=== PATIENT | female | born 1960 | race Caucasian/White ===

== ENCOUNTER 2022-08-07 07:53 | Inpatient (IN) | payer OTHER, SELFPAY ==
[2022-08-07] VITALS (25 sets, daily range): BP systolic 104–132; BP diastolic 75–86; PULSE 103–125; RESP 16–35; TEMP 37.1–37.9; O2SAT 95–100
--- NOTE | 2022-08-07 | ECHOL_ITS ---
Patient Info Name: Lakeisha Ruiz Age: 62 years : 1960 Gender: Female Ht: 66 in Wt: 180 lbs BSA: 1.97 m2 HR: 109 bpm Technical Quality: Fair Exam Date: 08/07/2022 12:12 PM Exam Location: [facility] Patient Status: Outpatient Admit Date: 08/07/2022 Staff Ordering Physician: Roro Lozano MD ([email or web address]/kim) Adjunct English Instructor: WATSON Attending Provider: Brian Ruiz MD Referring Physician: Blake FRAGA; Exam Type: CA echo limited Study Info Limited two-dimensional transthoracic echocardiogram is performed. Summary 1. This was a limited study done during pericardiocentesis. 2. Large pericardial effusion present. Agitated bubble study shows bubbles in the pericardial space. No bubbles seen in the RV. Linear artifact from pericardial drain catheter seen in the pericardial space. Right Ventricle fazal. Report Signatures
--- NOTE | 2022-08-07 | ECHO_ITS ---
Patient Info Name: Lakeisha Ruiz Age: 62 years : 1960 Gender: Female Ht: 66 in Wt: 180 lbs BSA: 1.97 m2 HR: 113 bpm BP: 112 / 83 mmHg Heart Rhythm: Sinus Rhythm, Tachycardia Technical Quality: Fair Exam Date: 08/07/2022 11:26 AM Exam Location: [facility] Patient Status: Outpatient Admit Date: 08/07/2022 Staff Ordering Physician: Shadi Campos MD Foaming Machine Operator: Kimberly Jean RDCS Attending Provider: Brian Ruiz MD Exam Type: CA echo doppler color flow Study Info Indications - PERICARDIAL EFFUSION Complete two-dimensional, color flow and Doppler transthoracic echocardiogram is performed. Summary 1. Complete two-dimensional, color flow and Doppler transthoracic echocardiogram is performed. 2. Left ventricular chamber dimension is normal. 3. Left ventricular systolic function is hyperdynamic, estimated at >70%. 4. There is mildly increased left ventricular wall thickness. 5. The left ventricular diastolic function is grade I diastolic dysfunction. 6. Right ventricular systolic function is normal. 7. Right atrial systolic collapse noted. 8. There is mild tricuspid valve regurgitation. 9. Dilated inferior vena cava with <50% collapse upon inspiration consistent with elevated right atrial pressure, 15 mmHg. 10. Left pleural effusion present. 11. There is large circumferential pericardial effusion. No clear echocardiographic evidence for tamponade. Recommend clinical correlation. Left Ventricle Left ventricular chamber dimension is normal. Left ventricular systolic function is hyperdynamic, estimated at >70%. There is mildly increased left ventricular wall thickness. The left ventricular diastolic function is grade I diastolic dysfunction. Right Ventricle Right ventricular chamber dimension is normal. Right ventricular systolic function is normal. Left Atria Left atrial chamber dimension is normal. Right Atria Right atrial systolic collapse noted. Right atrial chamber dimension is normal. Aortic Valve The aortic valve is trileaflet. There is mild aortic valve sclerosis. There is no aortic valve stenosis. Pulmonic Valve The pulmonic valve is not well visualized. Mitral Valve There is trace mitral valve regurgitation. The mitral valve annulus is moderately calcified. Tricuspid Valve There is mild tricuspid valve regurgitation. Pericardium/Pleural Left pleural effusion present. The pericardium appears normal. There is large circumferential pericardial effusion. No clear echocardiographic evidence for tamponade. Recommend clinical correlation. Inferior Vena Cava Dilated inferior vena cava with <50% collapse upon inspiration consistent with elevated right atrial pressure, 15 mmHg. Aorta The aortic root size at the sinus of Valsalva is normal. Left Ventricular Outflow Tract Name Value Normal LVOT 2D LVOT Diameter 1.9 cm LVOT Doppler LVOT Peak Gradient 4 mmHg LVOT Mean Gradient 2 mmHg LVOT VTI 14 cm LVOT VTI/AV VTI Ratio 0.9 LVOT Stro
--- NOTE | ~2022-08-07 | XR_ITS ---
Portable chest x-ray Comparison: 08/10/2022 Clinical History: Pleural effusion, pericardial catheter Findings: Pericardial catheter is essentially unchanged. Small bilateral pleural effusions are prese nt, left greater than right. There is probable mild bibasilar pulmonary edema/atelectasis. Cardiomed iastinal silhouette is stable. Bones and soft tissues are unremarkable. Impression: Small bilateral pleural effusions, left greater than right, with mild bibasilar pulmonary edema/atele ctasis. Stable pericardial catheter. Reviewed, dictated and finalized at location M. PMENT MAINTENANCE ENGINEER Impression: Small bilateral pleural effusions, left greater than right, with mild bibasilar pulmonary edema/atelectasis. Stable pericardial catheter.
--- NOTE | ~2022-08-07 | XR_ITS ---
XR chest 1V portable DATE: 08/09/2022 09:00 INDICATION: Pericardial effusion. Asymmetric drainage catheter TECHNIQUE: Portable upright AP chest on August 09, 2022 at 0857 hours COMPARISON: August 07, 2022 CT pulmonary scan FINDINGS: Catheter overlies the left and lower cardiac margin. There is enlargement of the cardiac si lhouette; prominent pericardial effusion was demonstrated on August 07, 2022 CTA chest examination. There is left upper lobe infiltrate. There is left lower lobe atelectasis and/or consolidation. Mild right lower lung infiltrate or atelectasis. Mild bilateral pleural effusions. Osteopenia. IMPRESSION: Catheter overlying heart Bilateral infiltrate and/atelectasis, much more prominent on the left Bilateral pleural effusions Reviewed, dictated and finalized at location A. ICAL NUTRITION MANAGER
--- NOTE | ~2022-08-07 | CT_ITS ---
EXAMINATION: CT abdomen pelvis w con DATE: 08/08/2022 21:23 INDICATION: Iron deficiency anemia and lymphadenopathy TECHNIQUE: Computed tomography (CT) of the abdomen and pelvis was performed with 100 mL Omnipaque-350 intravenous contrast. Automated exposure control and iterative reconstruction technique were employe d. The dose-length product was 493.42 mGy-cm. COMPARISON: Chest CT dated 08/17/2022 FINDINGS: The portions of the previously small right and moderate-sized left pleural effusions currently seen i n the lower lung zones appear unchanged. No interval change in collapse of the visualized basilar por tions of the left lower lobe and lingula and of mild compressive atelectasis in the right lower lobe. Interval placement of a drainage catheter within it decreased but still relatively large pericardial effusion. The heart size is normal and increased since the prior study. There is no leftward bowing of the ventricular septum to suggest tamponade not. There is enhancement without evident nodularity o f the pericardium. 11 mm cyst in the left hepatic lobe. There is heterogeneous enhancement of the liver with net negativ e appearance which can be seen with hepatic venous congestion. Gallbladder, spleen, pancreas, bilater al adrenal glands and kidneys are normal. Bowels including the appendix are normal. Small fat-contain ing umbilical hernia. Bladder, anteverted uterus and bilateral adnexa are unremarkable. Minimal likel y physiologic free fluid in the cul-de-sac. No pathologically enlarged abdominal or pelvic lymphadeno samm. Mild thoracic and lumbar spondylosis. Schmorl's nodes along the inferior endplates of L3 and L 4. IMPRESSION: 1. Slight decreased size of a still relatively large pericardial effusion and increased size of the n ormal sized heart post pericardial drainage catheter placement. There is however not make appears to the hepatic enhancement consistent with hepatic venous congestion and likely residual elevated right heart pressures resulting from the pericardial effusion. 2. No change in the visualized portions of the previously small right and moderate-sized left pleural effusions with associated atelectasis. 3. No pathologically enlarged lymphadenopathy in the abdomen or pelvis. Reviewed, dictated and finalized at location A. VINYL TOP INSTALLER IMPRESSION: 1. Slight decreased size of a still relatively large pericardial effusion and i ncreased size of the normal sized heart post pericardial drainage catheter plac ement. There is however not make appears to the hepatic enhancement consistent with hepatic venous congestion and likely residual elevated right heart pressur es resulting from the pericardial effusion. 2. No change in the visualized portions of the previously small right and moder ate-sized left pleural effusions with associated atelectasis. 3. No pathologically enlarged lymphadenopathy in the abdomen or pelvis.
--- NOTE | ~2022-08-07 | US_ITS ---
US thoracentesis DATE: 08/09/2022 15:04 INDICATION: Left pleural effusion TECHNIQUE: The purpose of the procedure, technique and potential complications including pneumothorax were discussed with the patient. The patient verbalized understanding and gave consent. The patient's lower left back was prepared with sterile Betadine solution. Sterile drape was applied. 1% lidocaine local anesthetic was administered to the skin and underlying subcutaneous tissues in th e lower posterior left intercostal space identified by ultrasound for optimal access to the left pleu ral effusion. A single stick needle/catheter was introduced into the pleural space. Fluid was identified at the hub of the needle. The catheter was advanced and the needle withdrawn. 400 CC and MLO pleural fluid was drained uneventfully. IMPRESSION: Ultrasound-guided percutaneous thoracentesis yielding 400 CC yellowish pleural fluid Reviewed, dictated and finalized at Location A. Reviewed, dictated and finalized at location A. SPERSON SHOES IMPRESSION: Ultrasound-guided percutaneous thoracentesis yielding 400 CC yellow kena pleural fluid
--- NOTE | ~2022-08-07 | US_ITS ---
EXAMINATION: US abdomen limited DATE: 08/07/2022 20:43 INDICATION: Elevated liver function tests TECHNIQUE: Multiple grayscale and Doppler ultrasound images of the abdomen were obtained. COMPARISON: None FINDINGS: The pancreatic head and body are normal in appearance. The pancreatic tail is not visualized. Visual ized proximal to mid inferior vena cava is normal. Liver has normal echogenicity and contour, with a smooth surface. No liver lesion identified. No intrahepatic biliary duct dilation suspected. Portal v enous flow was seen in the hepatopetal, normal direction and has normal Doppler waveform. The gallbla dder is normal in appearance. There is no cholelithiasis. The common bile duct measures 4 mm, which is normal. Sonographic Her sign was reported as negative by the cutter v groove. IMPRESSION: 1. Normal right upper quadrant ultrasound. Reviewed, dictated and finalized at location A. ICAL INVESTIGATOR
--- NOTE | ~2022-08-07 | XR_ITS ---
XR chest 1V portable DATE: 08/10/2022 06:10 INDICATION: Pericardial effusion; drain repositioning TECHNIQUE: Portable upright AP view on August 10, 2022 at 0525 hours COMPARISON: August 09, 2022 portable AP chest at 0857 hours and 1507 hours FINDINGS: Pericardial drainage catheter is again noted. Enlargement of the cardiac silhouette in the colon known pericardial effusion. Mild bilateral pleural effusions. There is infiltrate or atelectasis involving primarily the lower anatoly ng zones, left greater than right. No pneumothorax. IMPRESSION: No significant change since August 09, 2022 at 1507 hours Reviewed, dictated and finalized at location A. OLOGY AIDE
--- NOTE | ~2022-08-07 | XR_ITS ---
EXAMINATION: XR chest 1V portable DATE: 08/07/2022 08:32 INDICATION: Dyspnea. TECHNIQUE: A single frontal view of the chest was obtained on 2 radiographs. COMPARISON: Chest single view 06/11/2022 FINDINGS: There are small right and moderate-sized left pleural effusions. There are airspace opaciti es at the lung bases. No pneumothorax. Cardiomegaly is noted. IMPRESSION: 1. Small right and moderate-sized left pleural effusions with interval improvement on the right and w orsening on the left. 2. Airspace opacities at the lung bases, consistent with atelectasis versus pneumonia. 3. Cardiomegaly. Reviewed, dictated and finalized at location A. TER ASSISTANT IMPRESSION: 1. Small right and moderate-sized left pleural effusions with interval improvem ent on the right and worsening on the left. 2. Airspace opacities at the lung bases, consistent with atelectasis versus pne umonia. 3. Cardiomegaly.
--- NOTE | ~2022-08-07 | XR_ITS ---
EXAMINATION: XR chest 1V portable Exam Date/Time: 08/09/2022 15:00 SUPERINTENDENT PRESSURE HISTORY: post thoracentesis Comparison: CTPA and x-ray chest 08/07/2022. RESULT: Lines, tubes, and devices: A drainage catheter projects over the left mid/lower hemithorax, which lilly s been retracted slightly. Lungs and pleura: No pneumothorax. Decreased size of the left pleural effusion. Persistent diffuse r eticular and hazy groundglass opacities. Decreased left basilar atelectasis/consolidation. Persistent mild right and moderate left costophrenic angle blunting. Cardiomediastinal silhouette: Stable. Other: No acute osseous or upper abdominal finding. IMPRESSION: No pneumothorax status post thoracentesis. Reviewed, dictated and finalized at location K. RINTENDENT PRESSURE
--- NOTE | ~2022-08-07 | CT_ITS ---
EXAMINATION: CTA chest PE protocol DATE: 08/07/2022 10:23 INDICATION: Shortness of breath. TECHNIQUE: Computed tomography angiography (CTA) of the chest was performed with 100 mL Omnipaque-350 intravenous contrast timed to evaluate the pulmonary arteries. Coronal maximum intensity projection 3D-reconstructions were created by the technologist. Automated exposure control and iterative reconst ruction technique were employed. The dose-length product was 241.17 mGy-cm. COMPARISON: Chest single view 08/07/2022 FINDINGS: There are small right and moderate-sized left pleural effusions. There is bilateral passive atelectasis with a dependent predominance. There is a 1.8 cm subcutaneous cyst in right posterior th orax, likely a sebaceous cyst. The heart is small. There is a large pericardial effusion. There is no pulmonary embolus. There is a 3.0 x 2.1 cm mass in the anterior mediastinum. There is mild mediastin al lymphadenopathy. 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 There is mild thoracic spondylosis. IMPRESSION: 1. No pulmonary embolus. 2. Large pericardial effusion. The small heart size is suspicious for tamponade. I called this result to Dr. Campos. 3. Small right and moderate-sized left pleural effusions. 4. 3.0 x 2.1 cm mass in the anterior mediastinum. The differential diagnosis includes lymphoma and th ymoma. Reviewed, dictated and finalized at location A. BOAT CAPTAIN IMPRESSION: 1. No pulmonary embolus. 2. Large pericardial effusion. The small heart size is suspicious for tamponade . I called this result to Dr. Campos. 3. Small right and moderate-sized left pleural effusions. 4. 3.0 x 2.1 cm mass in the anterior mediastinum. The differential diagnosis in cludes lymphoma and thymoma.
--- NOTE | 2022-08-07 08:02 | ECG_ITS ---
Measurements Intervals [place] Rate: 123 P: 32 SC: 128 QRS: 2 QRSD: 79 T: 26 QT: 312 QTc: 447 Interpretive Statements SINUS TACHYCARDIA ABNORMAL RHYTHM ECG NO PREVIOUS ECG AVAILABLE FOR COMPARISON Electronically Signed On 08-07-2022 15:39:36 ORDER SCHEDULE CLERK by Roro Lozano M.D.
--- NOTE | 2022-08-07 08:24 | ED.SOB ---
HPI - SOB/Dyspnea General Chief Complaint: Shortness of Breath/Dyspnea Stated Complaint: shortness of breath while standing, colapsed Time Seen by Provider: 08/07/22 08:16 Source: patient and family Limitations: no limitations History of Present Illness HPI Narrative: 62 years old white female got up to go to the bathroom and then felt lightheadedness and collapsed to the floor, unresponsive for less than 5 seconds. Patient denies any trauma or pain. Patient reports history of shortness of breath for a while mainly on standing or walking. Also intermittent dry cough for a while. She denies history of COVID infection. Last time was seen by a physician over 10 years ago. Questionable anxiety and distress. She denies any fever, chills, nausea, vomiting, headache, chest pain, back pain, abdominal pain or urinary symptoms. The reported that patient been losing weight and have poor appetite for the last few months. Also she has been drinking a lot of water lately. Patient does not smoke or drink or uses drugs. Last chest x-ray on June 11, 2022 showed small pleural effusions, bibasilar airspace opacities, likely passive atelectasis. Please see AVS kidney stone once again give me when he had a stone in the upper kidney bottom or the top and secondly because we can give him we do not give him Toradol for the bottom given Toradol the reason because of the thickening to do lithotripsy stone at the end he given Toradol in the urology TLIF Related Data Home Medications Medication Instructions Recorded Confirmed metoprolol succinate 100 mg mg PO 08/07/22 08/07/22 tablet,extended release 24 hr Allergies Allergy/AdvReac Type Severity Reaction Status Date / Time No Known Allergies Allergy Unverified 11/13/16 16:27 Course Consultations Consultation #1: Dr. Blake Valladares Date: 08/07/22 Time: 10:46 Vital Signs Vital signs: Vital Signs Temperature 37.1 C 08/07/22 07:59 Pulse Rate 123 H 08/07/22 07:59 Respiratory Rate 18 08/07/22 07:59 Blood Pressure 117/86 08/07/22 07:59 Pulse Oximetry 98 08/07/22 07:59 Oxygen Delivery Room Air 08/07/22 07:59 Temperature 37.1 C 08/07/22 07:59 Pulse Rate 123 H 08/07/22 08:05 Respiratory Rate 18 08/07/22 07:59 Blood Pressure 117/86 08/07/22 07:59 Pulse Oximetry 98 08/07/22 08:05 Oxygen Delivery Room Air 08/07/22 08:05 MDM - SOB/Dyspnea MDM Narrative Medical decision making narrative: Patient is 62 years old white female came with shortness of breath for the last few months on exertion, developed lightheadedness and collapse to the floor unresponsive for few seconds prior to arrival today. Physical examination showed pale skin trace edema lower extremity bilaterally, tachyarrhythmia, diminution of air entry bilaterally at the lower bases with rales. On arrival to the ED patient is asymptomatic as long as laying down in bed. Differential diagnosis as below. Labs, chest x-ray, ABG on room air ordered. Blood work-up showed hemoglobin of 9.0, no old records for comparison, patient denies any black stool or any history of GI bleed, D-dimer 11.39, pulmonary embolism is a possibility, Lovenox 80 mg subcu ordered and given, CTA rule out PE ordered. And showed no PE, large pericardial effusion, suspicious for tamponade. Also MS in the anterior mediastinum which could be lymphoma or thymoma is a possibility. Cardiac echocardiogram ordered. Hospitalist, Dr. Lozano the director experimental medicine on-call was notified. Patient will be admitted to IMU, The patient and her family were notified about the result. Currently patient is hemodynamically stable S review Differential Diagnosis Differential diagnosis: Likely congestive heart failure, community acquired pneumonia and pulmonary embolism Lab Data 08/07/22 08:15 08/07/22 08:15 Labs: Lab Results 08/07/22 08/07/22 Range/Units 08:15 08:15 WBC 7.9 (4.5-10.0) K/mm3 RBC 3.44 L (4.2
[2022-08-07 08:27] LABS: Basophils Percent Auto 0.1 % (0.2-1.2); Eosinophils Percent Auto 0.1 % (0-4.4); Hematocrit 28.6 % (37.0-47.0); Immature Granulocyte Absolute 0.06 K/mm3 (0.00-0.031); Immature Granulocyte Percent A 0.8 % (0-0.5); Lymphocytes Absolute Auto 1.04 K/mm3 (0.9-3.2); Lymphocytes Percent Auto 13.2 % (18.3-44.2); Mean Corpuscular HGB Conc 31.5 g/dl (32-36); Mean Corpuscular Hemoglobin 26.2 pg (26-34); Mean Corpuscular Volume 83.1 fl (80-100); Mean Platelet Volume 9.6 fl (7.4-10.4); Monocytes Absolute Auto 0.6 K/mm3 (0.1-0.6); Monocytes Percent Auto 7.4 % (2.6-8.5); Neutrophils Absolute Auto 6.2 K/mm3 (1.3-6.7); Neutrophils Percent Auto 78.4 % (45.5-73.1); Platelet Count Result 418 k/mm3 (150-375); Red Blood Count 3.44 M/mm3 (4.2-5.4); Red Cell Distribution Width 15.2 % (11.5-14.5); White Blood Count 7.9 K/mm3 (4.5-10.0)
[2022-08-07 08:31] LABS: Alanine Aminotransferase 67 U/L (6-35); Albumin Level 3.8 g/dL (3.5-5.1); Alkaline Phosphatase 74 U/L (38-126); Anion Gap 12 mmol/L (8-16); Aspartate Amino Transferase 263 U/L (14-36); Bilirubin,Total 1.2 mg/dL (0.2-1.3); Blood Urea Nitrogen 21 mg/dL (7-17); Calcium 8.2 mg/dL (8.4-10.2); Carbon Dioxide 21 mmol/L (22-30); Chloride 98 mmol/L (98-107); Estimated CRCL calculation 78 ml/min; Estimated Glomerular Filt Rate > 60; Glucose 181 mg/dL (65-110); Potassium 4.1 mmol/L (3.4-5.0); Sodium 131 mmol/L (137-145)
[2022-08-07 08:45] LABS: Alveolar/Arterial O2 Gradient 42.8 mmHg; Base Excess ABG -1.8 mEq/l (+/-2.0); Fractional Inspired Oxygen 21 %; HCO3 ABG 20.6 mEq/l (22.0-26.0); Oxygen Content ABG 12.4 %vol (16.0-22.0); Oxygen Saturation ABG 96.3 % (95.0-100.0); Oxyhemoglobin 93.2 % THb (90.0-100.0); PCO2 ABG 27.1 mmHg (35.0-45.0); PO2 ABG 74.5 mmHg (80.0-100.0); PO2 FiO2 Ratio Arterial Blood 3.55 %; Total Hemoglobin 9.4 g/dL (12.0-18.0); pH ABG 7.499 (7.350-7.450)
[2022-08-07 08:46] LABS: Modified Allen's Test Pass; Site Drawn RIGHT RADIAL
[2022-08-07 08:47] LABS: Device ROOM AIR
[2022-08-07 09:25] LABS: Magnesium 2.1 mg/dL (1.6-2.3)
[2022-08-07 09:30] LABS: INR 1.4; Partial Thromboplastin Time 29.6 SECONDS (22.3-36.8); Prothrombin Time 16.3 Seconds (11.1-14.7)
[2022-08-07 09:34] LABS: Appearance Urine Slightly Cloudy (Clear); Bilirubin Urine 2+ (Negative); Blood Urine Trace-lysed (Negative); Color Urine Dark Yellow (Yellow); Glucose Urine UA Trace mg/dL (Negative); Ketones Urine 1+ mg/dL (Negative); Leukocyte Esterase Ur Negative LEU/UL (Negative); Nitrate Urine Negative (Negative); Protein Urine 2+ mg/dL (Negative); Specific Grav Ur >= 1.030 (1.001-1.035); pH Urine 5.5 (5.0-9.0)
[2022-08-07 09:37] LABS: NT Pro B Type Natriuretic Pept 1460 pg/mL (19.9-100); Troponin I < 0.012 ng/mL (0.000-0.034)
[2022-08-07 09:44] LABS: D Dimer 11.39 ug/mL (<0.48)
[2022-08-07 09:49] LABS: Influenza A QL RT-PCR Negative (Negative); Influenza B QL RT-PCR Negative (Negative); RSV RNA, RT-PCR Negative (Negative); SARS-CoV-2 RNA PCR Negative
[2022-08-07] MEDS: ENOXAPARIN 80 MG/0.8 ML SYRINGE SUB-Q (10:01)
[2022-08-07 11:00] LABS: Hyaline Casts Urine 50+ /lpf; Mucus Urine Moderate /lpf; Squamous Epithelial Cell Urine Many /hpf (Few)
[2022-08-07 11:12] LABS: Add Urine Microscopic? YES
--- NOTE | 2022-08-07 11:59 | PM.CNCAR ---
Assessment and Plan Assessment and plan (1) Pericardial effusion: Code(s): I31.39 - Other pericardial effusion (noninflammatory) Status: Acute Plan Will proceed with pericardiocentesis. Unclear reason for pericardial effusion. Will send off pericardial fluid for cultures, gram stain, cytology. Check TSH level. Recommend Oncology consultation for anterior mediastinal mass. History of Present Illness History of Present Illness Consult date/time: 08/07/22 11:59 Requesting physician: Shadi Campos MD Consult reason: Other (Pericardial effusion) Reason For Visit: pericardial effusion dyspnea,sinus tachycardia,chf Narrative: We are consulted for pericardial effusion. This is a 62-year-old female who presented to the ER after a syncopal episode today. Patient states she has been having exertional shortness of breath for the past few days. This morning, when walking she began to feel lightheaded and dizzy and then passed out for a few seconds. Patient does report having diarrhea and nausea/vomiting last weekend. No fevers. In the ER, patient noted to be tachycardic and tachypneic. Hemodynamically stable. Elevated D-dimer, therefore, dose of therapeutic Lovenox was given for concern for PE. CTA showed no PE, but did show large pericardial effusion, the small heart size is suspicious for tamponade. There are small right and moderate-sized left pleural effusions. There is also a 3.0mm x 2.1cm mass in the anterior mediastinum. The differential diagnosis includes lymphoma and thymoma. STAT bedside echo does confirm large circumferential pericardial effusion. Given patient's tachycardia, tachypnea, syncope in the setting of large pericardial effusion, recommended pericardiocentesis. Discussed the procedure with the patient, including risks vs benefits, and patient agreeable. Review of Systems Review of Systems: 12-point ROS obtained. Negative, unless stated in HPI. Meds Home Medications and Allergies Home Medications Medication Instructions Recorded Confirmed Type metoprolol succinate 100 mg mg PO 08/07/22 08/07/22 History tablet,extended release 24 hr Allergies Allergy/AdvReac Type Severity Reaction Status Date / Time No Known Allergies Allergy Unverified 11/13/16 16:27 Vital Signs Vital Signs - 24 hr 08/07/22 07:59 08/07/22 08:05 08/07/22 08:05 Temperature 37.1 C Pulse Rate 123 H 123 H Respiratory Rate 18 Blood Pressure 117/86 Pulse Oximetry 98 98 Oxygen Delivery Room Air Room Air 08/07/22 09:00 08/07/22 09:02 08/07/22 08:03 Temperature Pulse Rate 117 H 120 H 125 H Respiratory Rate 35 H Blood Pressure 121/78 110/81 Pulse Oximetry 98 Oxygen Delivery 08/07/22 08:21 08/07/22 08:33 08/07/22 09:02 Temperature Pulse Rate 119 H 121 H 119 H Respiratory Rate 24 H 27 H 24 H Blood Pressure Pulse Oximetry 98 98 97 Oxygen Delivery 08/07/22 09:26 08/07/22 09:30 08/07/22 09:31 Temperature Pulse Rate 114 H 113 H 113 H Respiratory Rate 29 H 29 H 34 H Blood Pressure 112/83 Pulse Oximetry 97 97 97 Oxygen Delivery 08/07/22 09:45 08/07/22 10:30 08/07/22 10:41 Temperature Pulse Rate 112 H 110 H 115 H Respiratory Rate 34 H 30 H 33 H Blood Pressure 112/85 Pulse Oximetry 95 100 99 Oxygen Delivery 08/07/22 10:45 08/07/22 10:52 08/07/22 11:16 Temperature Pulse Rate 111 H 111 H 111 H Respiratory Rate 27 H 31 H 30 H Blood Pressure 104/82 Pulse Oximetry 97 97 96 Oxygen Delivery 08/07/22 11:38 08/07/22 11:45 Temperature Pulse Rate 111 H 112 H Respiratory Rate 27 H 31 H Blood Pressure Pulse Oximetry 97 99 Oxygen Delivery Exam Const: General: no acute distress HENMT: Mouth: Yes moist mucous membranes Eyes: General: appearance normal, both eyes and all related structures Sclera: sclerae normal Neck: Neck: supple Resp: Auscultation: diminished lung sounds Other: Tachypneic Cardio: Rate: tachycar
--- NOTE | 2022-08-07 12:07 | WPDMODSED ---
Moderate Sedation Note-Pt Data Patient Data Diagnosis: Pericardial effusion Present Complaint: Pericardial effusion Procedure to be performed/Plan: Pericardiocentesis Allergies Allergy/AdvReac Type Severity Reaction Status Date / Time No Known Allergies Allergy Unverified 11/13/16 16:27 Home Medications Medication Instructions Recorded Confirmed Type metoprolol succinate 100 mg mg PO 08/07/22 08/07/22 History tablet,extended release 24 hr Current Medications: Active Medications Acetaminophen (Ofirmev 1,000 Mg Ivpb) 1,000 mg in 100 mls @ 400 mls/hr IVPB Q6H PRN PRN Reason: Mild Pain (1-3) or Fever Stop: 08/08/22 10:46 Perflutren Lipid Microsphere (Perflutren Lipid Microspheres 1.5 Ml Vial Diluted To 10 Ml Total Volume) 0 ml IV PUSH ONCE PRN; Protocol PRN Reason: adequate visualization Stop: 08/09/22 10:44 Sedation/Anesthesia: No previous sedation/anesthesia problems (including family history). Mod Sed Physical Exam Physical Exam Pre Procedural Exam: Normal: Appearance, Neuro Exam, Abdomen, Extremities and Skin and Variation: Lungs (Decreased breath sounds), Heart Rate (Sinus tachycardia) and Heart Rhythm (Sinus tachycardia) Hours since solid foods: 8 Hours since liquid intake: 5 Mallampati Classification: class II Internal Medicine - PN: Obj Da Vital Signs Vital Signs: Vital Signs - 24 hr 08/07/22 07:59 08/07/22 08:05 08/07/22 08:05 Temperature 37.1 C Pulse Rate 123 H 123 H Respiratory Rate 18 Blood Pressure 117/86 Pulse Oximetry 98 98 Oxygen Delivery Room Air Room Air 08/07/22 09:00 08/07/22 09:02 08/07/22 08:03 Temperature Pulse Rate 117 H 120 H 125 H Respiratory Rate 35 H Blood Pressure 121/78 110/81 Pulse Oximetry 98 Oxygen Delivery 08/07/22 08:21 08/07/22 08:33 08/07/22 09:02 Temperature Pulse Rate 119 H 121 H 119 H Respiratory Rate 24 H 27 H 24 H Blood Pressure Pulse Oximetry 98 98 97 Oxygen Delivery 08/07/22 09:26 08/07/22 09:30 08/07/22 09:31 Temperature Pulse Rate 114 H 113 H 113 H Respiratory Rate 29 H 29 H 34 H Blood Pressure 112/83 Pulse Oximetry 97 97 97 Oxygen Delivery 08/07/22 09:45 08/07/22 10:30 08/07/22 10:41 Temperature Pulse Rate 112 H 110 H 115 H Respiratory Rate 34 H 30 H 33 H Blood Pressure 112/85 Pulse Oximetry 95 100 99 Oxygen Delivery 08/07/22 10:45 08/07/22 10:52 08/07/22 11:16 Temperature Pulse Rate 111 H 111 H 111 H Respiratory Rate 27 H 31 H 30 H Blood Pressure 104/82 Pulse Oximetry 97 97 96 Oxygen Delivery 08/07/22 11:38 08/07/22 11:45 08/07/22 12:04 Temperature Pulse Rate 111 H 112 H 112 H Respiratory Rate 27 H 31 H 16 Blood Pressure 132/84 Pulse Oximetry 97 99 98 Oxygen Delivery Meds/Results Medications: Active Medications Generic Name Dose Route Start Last Admin Trade Name Freq PRN Reason Stop Dose Admin Acetaminophen 1,000 mg in 100 mls @ 400 mls/hr 08/07/22 10:47 Ofirmev 1,000 Mg Ivpb IVPB 08/08/22 10:46 Q6H PRN Mild Pain (1-3) or Fever Perflutren Lipid Microsphere 0 ml 08/07/22 10:44 Perflutren Lipid Microspheres 1.5 Ml Vial Diluted To 10 Ml Total Volume IV PUSH 08/09/22 10:44 ONCE PRN adequate visualization Protocol Radiology Results: ITS Impressions Chest X-Ray 08/07/22 08:34 IMPRESSION: 1. Small right and moderate-sized left pleural effusions with interval improvement on the right and worsening on the left. 2. Airspace opacities at the lung bases, consistent with atelectasis versus pneumonia. 3. Cardiomegaly. Chest CTA 08/07/22 10:23 IMPRESSION: 1. No pulmonary embolus. 2. Large pericardial effusion. The small heart size is suspicious for tamponade. I called this result to Dr. Campos. 3. Small right and moderate-sized left pleural effusions. 4. 3.0 x 2.1 cm mass in the anterior mediastinum. The differential diagnosis includes lymphoma and thymoma. Labs
--- NOTE | 2022-08-07 13:05 | WPDCARDPROC ---
Cardiac Cath Procedure Note Date of procedure:: 08/07/22 Performing physician:: CATHETERIZATION LABORATORY REPORT Procedure Date: 08/07/2022 [place] Compliance Coordinator: Roro Loznao M.D., [facility]? Referring Physician: Dr. Campos ([facility]) ? Anesthesia: Versed and Fentanyl were ordered and given in my presence at 12:16, procedure ended at 12:55. Supervision of nurse monitored moderate sedation with Versed and Fentanyl was provided for 39 minutes. Total of Versed 1mg and Fentanyl 25mcg were administered by the Vice President Of Engineering RN Lakeisha Cruz. Pre-op Diagnosis: Pericardial effusion Post-op Diagnosis: Successful pericardiocentesis with placement of pericardial drain catheter. 400ccs of pericardial fluid removed. Procedure(s): Pericardiocentesis with placement of pericardial drain catheter Access Site: Subxiphoid Brief History and Clinical Indications: Patient is a 62-year-old female with presented after a syncopal episode. Patient found with large pericardial effusion. Patient normotensive, however, due to tachycardia, tachypnea, large pericardial effusion, and syncope, patient referred for pericardiocentesis. All risks, benefits and alternatives to pericardiocentesis was discussed at length with the patient. Risk of complications including but not limited to bleeding, infection, arrhythmia, stroke, worsening kidney function, blood loss, emergency surgery, and even were discussed with the patient and all questions were answered. The patient understood and wished to proceed. Time out called, patient name, date of , medical record number, allergies, procedure performed, identify [facility] Compliance Coordinator, patient and staff member concurred with accurate data, procedure carried on. Description of Procedure: Informed consent signed and placed in the chart. Patient transferred to laborer golf course room. Prepped and draped in usual sterile fashion. 2% lidocaine injected subcutaneously in subxiphoid area. Micropuncture needle used to access into the pericardial space with direct fluoroscopic guidance along with echocardiographic guidance. Micropuncture wire advanced. Micropuncture cannula advanced. Micropuncture wire removed. Agitated saline bubble study performed through micropuncture cannula, which showed bubbles in the pericardial space. No bubbles seen in the RV. 0.035 J wire advanced into pericardial space. 6F dilator used to dilate the tract. Pigtail catheter was advanced and positioned and sutured in place. Pigtail catheter connected to drain bag. Total of 400ccs of pericardial fluid were drained. Samples sent to the lab for analysis. Procedure terminated without complications. ? Assessment: Successful pericardiocentesis with placement of pericardial drain catheter. 400ccs of pericardial fluid removed. Post Operative Condition: Stable No significant blood loss Disposition: ICU Plan: See consult note for further plan/recommendations. ? Roro Lozano M.D. Interventional Cardiology
--- NOTE | 2022-08-07 13:22 | ADMGEN ---
This patient, Lakeisha Ruiz, was admitted to ICU bed 4 at 1319. Patient/family oriented to hospital policies and general routines including ID bracelet, bed and alarms, visiting hours, pain management, procedures, bathroom and other care routines, personal items, smoking policy, room service/diet, and visiting hours. Information on how to activate the Rapid Response Team has been discussed. Patient/Family are encouraged to report perceived risks to care and to ask questions if they do not understand what they are told or what they should do.
--- NOTE | 2022-08-07 13:55 | WPDCNINT ---
Assessment and Plan Assessment and plan (1) Pericardial effusion: Code(s): I31.39 - Other pericardial effusion (noninflammatory) Status: Acute Assessment and Plan: patient presented with exertional dyspnea and syncope - CTA chest showed large pleural effusion, no PE - cardiology was consulted - status post pericardiocentesis with removal of 400 mL of marilou colored fluid which has been sent for cytology, cell count, Gram stain and culture - cardiology following the patient closely -. repeat limited echocardiogram in a.m. on 08/08/2022 (2) Mediastinal mass: Code(s): J98.59 - Other diseases of mediastinum, not elsewhere classified Status: Acute Assessment and Plan: 08/07/2022 chest CTA: No pulmonary embolus.. Large pericardial effusion. The small heart size is suspicious for tamponade. I called this result to Dr. Campos.. Small right and moderate-sized left pleural effusions.. 3.0 x 2.1 cm mass in the anterior mediastinum. The differential diagnosis includes lymphoma and thymoma. - pericardiocentesis fluid has been sent for cytology, cell count, Gram stain and culture - will have hematology/oncology evaluated the patient (3) Anemia: Code(s): D64.9 - Anemia, unspecified Status: Acute Assessment and Plan: patient's hemoglobin is 9.0 - will check stool for occult blood - check vitamin B12 and folic acid - check iron panel (4) Elevated LFTs: Code(s): R79.89 - Other specified abnormal findings of blood chemistry Status: Acute Assessment and Plan: elevated LFTs, will obtain hepatitis panel, right upper quadrant ultrasound - given pericardial effusion, mediastinal mass patient will benefit from a CT scan of the abdomen and pelvis, will discuss with Oncology Plan DVT prophylaxis: SCDs, patient has a pericardial drain Stress ulcer prophylaxis: not applicable Nutrition: heart healthy diet Code Status: full code Critical Care Time Spent: 47 minutes Discussed with patient, her Dr. Ruiz, and her children and updated them with patient's condition and plan of care. I answered all questions. The aware that Hematology/ oncology's on re-evaluating the patient Discussed with Dr. Lozano from Cardiology Due to a high probability of clinically significant, life threatening deterioration, the patient required my highest level of preparedness to intervene emergently and I personally spent this critical care time directly and personally managing the patient. This critical care time included obtaining a history; examining the patient; pulse oximetry; ordering and review of studies; arranging urgent treatment with development of a management plan; evaluation of patient's response to treatment; frequent reassessment; and discussions with other providers. It was exclusive of separately billable procedures and treating other patients and teaching time. Please see Assessment and Plan section and the rest of the note for further information on patient assessment and treatment This dictation may have been done utilizing a voice recognition system. Attempts have been made to correct errors. However, there may be uncorrected grammatical, spelling, and recognitions errors present. Colorectal Surgeon Consult Note Consult date: 08/07/22 Reason for consult: syncope, , dyspnea, tachycardia,large pericardial effusion HPI: Lakeisha Ruiz is a 62 year old female past medical history of hypertension on metoprolol, presented the ER on 08/07/2022 with complains of a syncopal episode on the day of admission. Patient also complain of some exertional shortness of breath for the last few days. Has been reported weight loss and poor appetite over the last few months. according the patient she was walking to the washroom and fell lightheaded and dizzy and then had a syncopal episodes for a few seconds. he complain of some diarrhea, nausea / vomiting last weekend, no fevers. In the ER patient wa
[2022-08-07 14:14] LABS: Troponin I 0.012 ng/mL (0.000-0.034)
[2022-08-07] MEDS: SODIUM CHLORIDE 0.9% IV 1,000 ML 75 ML IV CONT (14:55)
[2022-08-07 14:58] LABS: Hepatitis B Surface Antigen Negative (Negative)
[2022-08-07 15:03] LABS: HAV RESULT Negative (Negative); Hepatitis B Core IgM Result Negative (Negative)
[2022-08-07 15:15] LABS: Hepatitis C Virus Antibody Negative (Negative)
[2022-08-07 15:39] LABS: Folic Acid 4.8 ng/mL (2.76->20)
[2022-08-07 16:29] LABS: Troponin I 0.028 ng/mL (0.000-0.034)
[2022-08-07 18:33] LABS: Iron 16 ug/dL (37-170)
[2022-08-07 18:47] LABS: Percent Iron Saturation 8 % (20-50)
--- NOTE | 2022-08-07 23:00 | PM.IMHP ---
H&P: HPI History of Present Illness Date/Time: 08/07/22 23:00 Chief Complaint: Syncope. Narrative: This is a very pleasant 62-year-old female presented to the emergency department for evaluation after a syncopal episode. Patient provides the following history. She has had a dry, hacking cough since last summer and she has lost about 20 to 30 lb in that same time frame. She has not felt well since last weekend with generalized malaise, decrease in energy, poor appetite, occasional nausea and vomiting, and intermittent lightheadedness with position changes. This morning after using the restroom she started to feel lightheaded, dizzy, and weak and she collapsed to the floor after leaving the bathroom. She was briefly unresponsive, perhaps 5 seconds or so before coming to. She was tachycardic (sinus rhythm in the 120s), afebrile, and had stable blood pressures on arrival to the ED. Labs were significant for a D-dimer of 11.39, normocytic anemia with a hemoglobin of 9.0, sodium 131, glucose 181, AST 263, ALT 67, troponin less than 0.012, proBNP 1460. Urine was concentrated with 2+ protein, 1+ ketones, trace glucose, and many hyaline casts. CTA of the chest showed no evidence of pulmonary embolism, a 3.0 x 2.1 cm mass in the anterior mediastinum, small right and moderate size left pleural effusions, and a large pericardial effusion with findings suspicious for tamponade. She was taken to the chemical processing laborer and underwent successful pericardiocentesis with placement of pericardial drain catheter. 400 cc of pericardial fluid was removed and initially the fluid was straw-colored however now it appears more bloody. At the time my evaluation she is resting comfortably and has no specific complaints. She has not noticed swelling in the face or extremities and she has not noticed any swollen lymph nodes. She also denies rash, pruritus, and night sweats. Review of Systems Review of Systems: Twelve systems were reviewed and are negative except for as per HPI. [facility] Past Medical History Medical History (Updated 08/09/22 @ 00:37 by Hazel Lopez PA-C) Hypertension Surgical History Surgical History (Updated 08/09/22 @ 00:37 by Hazel Lopez PA-C) History of tonsillectomy Family History Family History Sibling Bladder cancer Father Melanoma Mother Lymphoma Social History Social History (Updated 08/09/22 @ 00:38 by Hazel Lopez PA-C) Social History: Surrogate medical decision maker: Brian Ruiz, spouse. Code status: Full code. Smoking status: Never smoker Alcohol intake: never Substance use: never Lack of Transportation: No Lack of Food: Never True Current Housing: I Have Housing Concerned About Future Housing: No Difficulty Paying Gas/Electric Bills: No Difficulty Paying for Meds: No Currently Unemployed: No Education: Bachelor's Degree Difficulty w/ Childcare or Family Care: No Spiritual care concerns: No Meds Home Medications and Allergies Home Medications Medication Instructions Recorded Confirmed Type loratadine 10 mg tablet (Claritin) 10 mg PO DAILY 08/07/22 08/07/22 History metoprolol succinate 100 mg 100 mg PO DAILY 08/07/22 08/07/22 History tablet,extended release 24 hr Allergies Allergy/AdvReac Type Severity Reaction Status Date / Time No Known Allergies Allergy Unverified 11/13/16 16:27 Vital Signs Vital Signs - 24 hr 08/07/22 07:59 08/07/22 08:05 08/07/22 08:05 Temperature 98.7 F Pulse Rate 123 H 123 H Respiratory Rate 18 Blood Pressure 117/86 Pulse Oximetry 98 98 Oxygen Delivery Room Air Room Air 08/07/22 09:00 08/07/22 09:02 08/07/22 08:03 Temperature Pulse Rate 117 H 120 H 125 H Respiratory Rate 35 H Blood Pressure 121/78 110/81 Pulse Oximetry 98 Oxygen Delivery 08/07/22 08:21 08/07/22 08:33 08/07/22 09:02 Temperature Pulse Rate 119 H 121 H 119 H
[2022-08-08] VITALS (15 sets, daily range): BP systolic 110–142; BP diastolic 82–100; PULSE 86–158; RESP 25–30; TEMP 36.6–37.3; O2SAT 92–97; BMI 29.0
[2022-08-08 04:13] LABS: Basophils Percent Auto 0.3 % (0.2-1.2); Hemoglobin 8.3 g/dL (12.0-15.0); Immature Granulocyte Absolute 0.05 K/mm3 (0.00-0.031); Immature Granulocyte Percent A 0.8 % (0-0.5); Lymphocytes Absolute Auto 1.23 K/mm3 (0.9-3.2); Mean Corpuscular HGB Conc 31.9 g/dl (32-36); Mean Corpuscular Hemoglobin 25.8 pg (26-34); Mean Corpuscular Volume 80.7 fl (80-100); Mean Platelet Volume 9.1 fl (7.4-10.4); Monocytes Absolute Auto 0.5 K/mm3 (0.1-0.6); Monocytes Percent Auto 7.1 % (2.6-8.5); Neutrophils Absolute Auto 4.7 K/mm3 (1.3-6.7); Neutrophils Percent Auto 72.8 % (45.5-73.1); Platelet Count Result 352 k/mm3 (150-375); Red Blood Count 3.22 M/mm3 (4.2-5.4); White Blood Count 6.5 K/mm3 (4.5-10.0)
[2022-08-08 04:24] LABS: Alanine Aminotransferase 79 U/L (6-35); Albumin Level 2.9 g/dL (3.5-5.1); Alkaline Phosphatase 56 U/L (38-126); Anion Gap 5 mmol/L (8-16); Aspartate Amino Transferase 167 U/L (14-36); Bilirubin,Total 0.7 mg/dL (0.2-1.3); Blood Urea Nitrogen 21 mg/dL (7-17); Calcium 7.5 mg/dL (8.4-10.2); Carbon Dioxide 26 mmol/L (22-30); Chloride 103 mmol/L (98-107); Estimated CRCL calculation 90 ml/min; Estimated Glomerular Filt Rate > 60; Glucose 101 mg/dL (65-110); INR 1.4; Partial Thromboplastin Time 29.5 SECONDS (22.3-36.8); Potassium 3.3 mmol/L (3.4-5.0); Prothrombin Time 16.7 Seconds (11.1-14.7); Sodium 134 mmol/L (137-145); Uric Acid 5.2 mg/dL (2.5-7.5)
[2022-08-08 04:26] LABS: Magnesium 2.3 mg/dL (1.6-2.3); Phosphorus 2.4 mg/dL (2.5-4.5)
[2022-08-08 04:47] LABS: Platelet Estimate Adequate (Adequate); Poikilocytosis 1+ (NORMAL); Rouleaux 1+ (NORMAL); Schistocytes None Seen (NORMAL)
[2022-08-08 04:48] LABS: Burr Cells 1+ (NORMAL)
[2022-08-08 05:13] LABS: Hepatitis B Surface Antigen Negative (Negative)
[2022-08-08 05:19] LABS: HAV RESULT Negative (Negative); Hepatitis B Core IgM Result Negative (Negative)
[2022-08-08 05:30] LABS: Hepatitis C Virus Antibody Negative (Negative)
--- NOTE | 2022-08-08 07:00 | ECHOL_ITS ---
Patient Info Name: Lakeisha Ruiz Age: 62 years : 1960 Gender: Female Ht: 66 in Wt: 180 lbs BSA: 1.97 m2 HR: 109 bpm BP: 110 / 86 mmHg Heart Rhythm: Sinus Rhythm Technical Quality: Good Exam Date: 08/08/2022 11:01 AM Exam Location: [facility] Card Pulmonary Patient Status: Inpatient Admit Date: 08/07/2022 Staff Ordering Physician: Roro Lozano MD (awilda/kim) Community Affairs Director: Kimberly Jean RDCS Attending Provider: Ron Maher MD Referring Physician: Blake FRAGA; Exam Type: CA echo limited Study Info Indications - RE-EVALUATE PERICARDIAL EFFUSION Limited two-dimensional transthoracic echocardiogram is performed. Summary 1. Left ventricular chamber dimension is normal. 2. Left ventricular systolic function is normal, estimated at 65-70%. 3. Right ventricular chamber dimension is normal. 4. There is moderate circumferential pericardial effusion. 5. Catheter is seen in the pericardial space. Left Ventricle Left ventricular chamber dimension is normal. Left ventricular systolic function is normal, estimated at 65-70%. Right Ventricle Right ventricular chamber dimension is normal. Left Atria Left atrial chamber dimension is normal. Right Atria Right atrial chamber dimension is normal. Aortic Valve The aortic valve is not well visualized. Pulmonic Valve The pulmonic valve is not well visualized. Mitral Valve The mitral valve has normal leaflets. Tricuspid Valve The tricuspid valve leaflets are normal. Pericardium/Pleural There is moderate circumferential pericardial effusion. Catheter is seen in the pericardial space. Aorta The aortic root size at the sinus of Valsalva is normal. Report Signatures
[2022-08-08] MEDS: POTASSIUM PHOS/SODIUM PHOS 250 MG TABLET PO (07:41)
--- NOTE | 2022-08-08 07:45 | WPDINTPN ---
Progress Note: A&P Assessment and Plan (1) Pericardial effusion: Code(s): I31.39 - Other pericardial effusion (noninflammatory) Status: Acute Assessment and Plan: patient presented with exertional dyspnea and syncope - CTA chest showed large pleural effusion, no PE - cardiology was consulted - status post pericardiocentesis with removal of 400 mL of marilou colored fluid which has been sent for cytology, cell count, Gram stain and culture - cardiology following the patient closely - repeat limited echocardiogram in a.m. on 08/08/2022 - pericardial drain at 310 mL overnight, may need to be flushed will discuss with Cardiology (2) Mediastinal mass: Code(s): J98.59 - Other diseases of mediastinum, not elsewhere classified Status: Acute Assessment and Plan: 08/07/2022 chest CTA: No pulmonary embolus.. Large pericardial effusion. The small heart size is suspicious for tamponade. I called this result to Dr. Campos.. Small right and moderate-sized left pleural effusions.. 3.0 x 2.1 cm mass in the anterior mediastinum. The differential diagnosis includes lymphoma and thymoma. - pericardiocentesis fluid has been sent for cytology, cell count, Gram stain and culture - will have hematology/oncology evaluated the patient (3) Anemia: Code(s): D64.9 - Anemia, unspecified Status: Acute Assessment and Plan: patient's hemoglobin is 9.0 - stool for occult blood has been ordered - vitamin B and folic acid levels are within normal limits - low iron, low transferrin saturation, low TIBC, could be related to anemia of chronic disease, hematology/oncology has been consulted - haptoglobin is pending - check LDH (4) Elevated LFTs: Code(s): R79.89 - Other specified abnormal findings of blood chemistry Status: Acute Assessment and Plan: elevated LFTs, -08/07: hepatitis panel is negative -08/07: RUQ ultrasound: normal right upper quadrant ultrasound - given pericardial effusion, mediastinal mass patient will benefit from a CT scan of the abdomen and pelvis, will discuss with Oncology Plan DVT prophylaxis: SCDs, patient has a pericardial drain Stress ulcer prophylaxis: not applicable Nutrition: heart healthy diet Code Status: full code Critical Care Time Spent: 33 minutes Discussed with patient, her Dr. Ruiz, and her children and updated them with patient's condition and plan of care. I answered all questions. The aware that Hematology/ oncology's on re-evaluating the patient Discussed with Dr. Lozano from Cardiology Due to a high probability of clinically significant, life threatening deterioration, the patient required my highest level of preparedness to intervene emergently and I personally spent this critical care time directly and personally managing the patient. This critical care time included obtaining a history; examining the patient; pulse oximetry; ordering and review of studies; arranging urgent treatment with development of a management plan; evaluation of patient's response to treatment; frequent reassessment; and discussions with other providers. It was exclusive of separately billable procedures and treating other patients and teaching time. Please see Assessment and Plan section and the rest of the note for further information on patient assessment and treatment This dictation may have been done utilizing a voice recognition system. Attempts have been made to correct errors. However, there may be uncorrected grammatical, spelling, and recognitions errors present. Subjective Date/time seen: 08/08/22 07:45 Interval history: Reason for consult: syncope, , dyspnea, tachycardia,large pericardial effusion 08/08/2022: Patient seen and examined in the ICU, is awake, alert, oriented x3, nonfocal. Afebrile, adequate urine output, hemodynamically stable. Patient had 310 mL in the pericardial drain overnight. Bedside RN also noted some clots. Josiah
[2022-08-08 09:21] LABS: Lactate Dehydrogenase 394 U/L (120-246)
--- NOTE | 2022-08-08 15:39 | ECG_ITS ---
Measurements Intervals [place] Rate: 165 P: RI: 0 QRS: -5 QRSD: 83 T: 214 QT: 265 QTc: 439 Interpretive Statements ATRIAL FIBRILLATION WITH RAPID VENTRICULAR RESPONSE COMPARED TO ECG 08/07/2022 08:04:39 ATRIAL FIBRILLATION NOW PRESENT ABERRANT CONDUCTION OF SUPRAVENTRICULAR BEAT(S) NOW PRESENT Electronically Signed On 08-09-2022 8:19:04 YOUTH LEADER by Lesly Rosenberg M.D.
[2022-08-08] MEDS: METOPROLOL TARTRATE INJ 5 MG/5 ML VIAL IV PUSH (15:55)
[2022-08-08] MEDS: SOTALOL HCL 80 MG TABLET PO (16:29)
--- NOTE | 2022-08-08 16:42 | PC.NURSE ---
Rhythm change noted at 1535, stat ekg obtained. Patient found to be in afib rvr. Orders obtained from Dr. Frye for Metoprolol 5 mg ivpush now, Sotalol 80 mg po now. Patient noted to return to normal sinus rhythm at 1616, HR 98. No complaints of chest pain/shortness of breath during this time. Will continue to monitor closely.
--- NOTE | 2022-08-08 17:58 | PDONCCN ---
HPI - Date of Consult Date/Time: 08/08/22 17:58 Requesting Physician: Ron Maher MD Primary Care Provider: Mary Jo Barajas PAC - Consult Narrative Reason for consult: Iron deficiency anemia and mediastinal mass. Narrative: Lakeisha Ruiz is a 62 year old female who has been in good health came into the hospital with syncopal episode. Patient has been dealing with cough for last several months duration and has lost almost 30 lb weight since then. She denies any diarrhea and constipation. Denies any melena hematochezia. CTA chest was performed that showed no evidence of pulmonary embolism but there was 3 x 2.1 cm mass in the anterior mediastinum. There was a small right and moderate left pleural effusion and large pericardial effusion. Patient had pericardiocentesis performed with removal of foreign cc of fluid. Pleural fluid cytology showed no evidence of malignancy. Other labs showed significant iron deficiency anemia. LDH was slightly elevated at 394 and creatinine was normal. B12 was also normal. She denies any night sweats fevers and chills. Denies any other new long bones are lymphadenopathy. Review of Systems - Review of Systems All systems reviewed & are unremarkable except as noted in HPI and [facility] Family History: Family History (Last Updated 08/07/22 @ 13:41 by Jane Walden RN) Sibling Bladder cancer Father Melanoma Mother Lymphoma - Social History Social History: Social History (Last Reviewed 08/07/22 @ 12:07 by Roro Lozano MD) Alcohol Use: Alcohol intake: never Substance Use: Substance use: never Others: Spiritual care concerns: No Smoking Status: Smoking status: Never smoker Social Determinants of Health: Has the Lack of Transportation Kept You From Medical Appointments or From Getting Medications?: No Within the Past 12 Months, Were You Worried Whether Your Food Would Run Out Before You Got Money to Buy More?: Never True What is Your Housing Situation Today?: I Have Housing Are You Worried That in the Next 2 Months, You May Not Have Your Own Housing to Live In?: No Do You Have Trouble Paying Your Heating Or Electricity Bill?: No Do You Have Trouble Paying For Medicines?: No Are You Currently Unemployed and Looking for Work?: No Highest Level of Education Completed: Bachelor's Degree Do You Have Trouble With Childcare or the Care of a Family Member?: No Exam - Vital Signs Vital Signs - 24 hr 08/07/22 18:00 08/07/22 18:00 08/07/22 19:52 Temperature 37.9 C H Pulse Rate 105 H 105 H 111 H Respiratory Rate 18 18 Blood Pressure 106/75 120/82 Pulse Oximetry 95 95 Oxygen Delivery 08/07/22 20:00 08/07/22 22:00 08/07/22 22:00 Temperature 37.2 C Pulse Rate 111 H 103 H 103 H Respiratory Rate 21 H Blood Pressure 126/82 Pulse Oximetry 97 Oxygen Delivery 08/08/22 00:00 08/08/22 00:00 08/08/22 00:00 Temperature 36.9 C Pulse Rate 98 104 H Respiratory Rate 26 H Blood Pressure 129/91 H Pulse Oximetry 97 Oxygen Delivery Room Air 08/08/22 02:00 08/08/22 03:51 08/08/22 02:00 Temperature 36.9 C 36.9 C Pulse Rate 94 100 97 Respiratory Rate 25 H 27 H Blood Pressure 123/82 125/83 Pulse Oximetry 97 95 Oxygen Delivery 08/08/22 04:00 08/08/22 04:00 08/08/22 06:00 Temperature Pulse Rate 105 H 97 Respiratory Rate Blood Pressure Pulse Oximetry Oxygen Delivery Room Air 08/08/22 06:00 08/08/22 08:00 08/08/22 08:00 Temperature 36.6 C 36.8 C Pulse Rate 97 106 H 106 H Respiratory Rate 26 H 27 H Blood Pressure 110/86 114/93 H Pulse Oximetry 96 96 Oxygen Delivery 08/08/22 08:00 08/08/22 10:00 08/08/22 10:00 Temperature Pulse Rate 106 H 107 H 107 H Respiratory Rate 27 H 30 H Blood Pressure 139/100 H Pulse Oximetry 96 94 Oxygen Delivery Room Air 08/08/22 12:00 08/08/22 12:00 08/08/22 12:00 Temperat
--- NOTE | 2022-08-08 18:30 | ECG_ITS ---
Measurements Intervals [place] Rate: 88 P: 31 AR: 147 QRS: -6 QRSD: 81 T: -1 QT: 385 QTc: 468 Interpretive Statements SINUS RHYTHM COMPARED TO ECG 08/08/2022 15:43:26 ATRIAL FIBRILLATION HAS RESOLVED Electronically Signed On 08-09-2022 8:37:25 CONSUMER MARKETING MANAGER by Lesly Rosenberg M.D.
[2022-08-09] VITALS (15 sets, daily range): BP systolic 109–141; BP diastolic 73–97; PULSE 72–88; RESP 22–28; TEMP 36.6–37; O2SAT 92–99
--- NOTE | 2022-08-09 | ECHOL_ITS ---
Patient Info Name: Lakeisha Ruiz Age: 62 years : 1960 Gender: Female Ht: 66 in Wt: 180 lbs BSA: 1.97 m2 HR: 81 bpm BP: 113 / 73 mmHg Heart Rhythm: Sinus Rhythm Technical Quality: Good Exam Date: 08/09/2022 8:00 AM [facility]: ICU 4 Patient Status: Inpatient Admit Date: 08/07/2022 Staff Ordering Physician: Hedy Montelongo Insulation Cupola Charger: Meli Pino RDCS Attending Provider: Ron Maher MD Referring Physician: Jayda LYNN; Exam Type: CA echo limited Study Info Indications - RE EVAL PERICARDIAL EFFUSION Limited two-dimensional transthoracic echocardiogram is performed. Summary 1. Limited echocardiogram to re-evaluate pericardial effusion. 2. Moderate pericardial effusion persists. 2.4-2.5 cm around the right atrium, 1.3 cm anterior to the right ventricle, minimal apical effusion, 2.5 cm thick posteriorly. 3. No pericardial effusion. 4. Dilated IVC with poor respiratory collapse. 5. Normal sinus rhythm. Report Signatures
[2022-08-09 04:20] LABS: Anion Gap 2 mmol/L (8-16); Blood Urea Nitrogen 17 mg/dL (7-17); Calcium 7.7 mg/dL (8.4-10.2); Carbon Dioxide 31 mmol/L (22-30); Chloride 99 mmol/L (98-107); Estimated CRCL calculation 89 ml/min; Estimated Glomerular Filt Rate > 60; Glucose 107 mg/dL (65-110); Magnesium 2.3 mg/dL (1.6-2.3); Potassium 3.6 mmol/L (3.4-5.0); Sodium 132 mmol/L (137-145)
[2022-08-09 04:58] LABS: Lactate Dehydrogenase 306 U/L (120-246)
--- NOTE | 2022-08-09 08:43 | PM.IMPN ---
Progress Note: A&P Assessment and Plan (1) Pericardial effusion: Code(s): I31.39 - Other pericardial effusion (noninflammatory) Status: Acute Assessment and Plan: Cardiology consult appreciated, pericardial drain in place status post pericardiocentesis Echo from this morning shows persistent moderate pericardial effusion, will defer further management to Cardiology (2) Mediastinal mass: Code(s): J98.59 - Other diseases of mediastinum, not elsewhere classified Status: Acute Assessment and Plan: Appreciate hematology/oncology consultation, mediastinal mass concerning for lymphoma versus thymoma, no reactive lymphadenopathy noted Pericardial fluid cytology showed no evidence of malignancy CT abdomen pelvis performed showing persistent pericardial effusion with associated hepatic congestion, stable bilateral pleural effusions with associated atelectasis, no lymphadenopathy noted Suspected mass will need to be biopsied? (3) Anemia: Code(s): D64.9 - Anemia, unspecified Status: Acute Assessment and Plan: Appreciate hematology consultation, appears to have iron deficiency anemia, management per Hematology (4) Elevated LFTs: Code(s): R79.89 - Other specified abnormal findings of blood chemistry Status: Acute Assessment and Plan: recheck pending, hepatitis panel negative Plan DVT prophylaxis: SCDs, patient has a pericardial drain Stress ulcer prophylaxis: not applicable Nutrition: heart healthy diet Code Status: full code Subjective Date/time seen: 08/09/22 08:43 Interval history: No overnight events noted. No chest pain or shortness of breath. No nausea, vomiting or diarrhea. No fevers or chills. Review of Systems Review of Systems: 12 point review of systems was assessed and was negative except as noted in the HPI Exam Narrative: General: No acute distress, alert and oriented per baseline HEENT: Atraumatic, normocephalic, mucous membranes moist CV: Tachycardic Lungs: Unlabored breathing, no audible wheeze Abdomen: Soft, nontender, nondistended Extremities: Normal to inspection Skin: No rashes noted, no lesions or wounds seen Psych: Euthymic, normal affect Objective Data Vital Signs Vital Signs: Vital Signs - 24 hr 08/08/22 10:00 08/08/22 10:00 08/08/22 12:00 Temperature Pulse Rate 107 H 107 H 109 H Respiratory Rate 30 H Blood Pressure 139/100 H Pulse Oximetry 94 Oxygen Delivery 08/08/22 12:00 08/08/22 12:00 08/08/22 14:00 Temperature Pulse Rate 106 H 108 H 106 H Respiratory Rate 25 H 28 H 28 H Blood Pressure 142/98 H 132/89 Pulse Oximetry 95 97 95 Oxygen Delivery Room Air 08/08/22 14:00 08/08/22 15:55 08/08/22 16:29 Temperature Pulse Rate 106 H 158 H 99 Respiratory Rate Blood Pressure Pulse Oximetry Oxygen Delivery 08/08/22 16:00 08/08/22 16:00 08/08/22 18:00 Temperature 98.2 F Pulse Rate 98 142 H 88 Respiratory Rate 27 H Blood Pressure 138/98 H Pulse Oximetry 94 Oxygen Delivery 08/08/22 18:00 08/08/22 16:00 08/08/22 20:00 Temperature 99.2 F Pulse Rate 86 88 90 Respiratory Rate 28 H 30 H 26 H Blood Pressure 114/88 116/82 Pulse Oximetry 95 96 92 Oxygen Delivery Room Air 08/08/22 20:00 08/08/22 20:00 08/08/22 22:00 Temperature Pulse Rate 87 88 Respiratory Rate Blood Pressure Pulse Oximetry Oxygen Delivery Room Air 08/08/22 22:00 08/09/22 00:00 08/09/22 02:00 Temperature 98.4 F 98.4 F Pulse Rate 86 83 84 Respiratory Rate 28 H 24 H 28 H Blood Pressure 127/84 141/97 H 130/89 Pulse Oximetry 93 92 93 Oxygen Delivery 08/09/22 00:00 08/09/22 00:00 08/09/22 02:00 Temperature Pulse Rate 84 84 Respiratory Rate Blood Pressure Pulse Oximetry Oxygen Delivery Room Air 08/09/22 04:00 08/09/22 04:00 08/09/22 04:00 Temperature Pulse Rate 84 86 Respiratory Rate 23 H Blood
[2022-08-09] MEDS: IRON SUCROSE COMPLEX 500 MG in SODIUM CHLORIDE 0.9% IV 250 ML 78.57 MG IVPB (09:09)
[2022-08-09] MEDS: SOTALOL HCL 80 MG TABLET PO ×2 (09:09→20:56)
--- NOTE | 2022-08-09 09:26 | WPDINTPN ---
Progress Note: A&P Assessment and Plan (1) Pericardial effusion: Code(s): I31.39 - Other pericardial effusion (noninflammatory) Status: Acute Assessment and Plan: patient presented with exertional dyspnea and syncope - CTA chest showed large pleural effusion, no PE - -08/07 status post pericardiocentesis with removal of 400 mL of marilou colored fluid which has been sent for cytology, cell count, Gram stain and culture -her WBCs normal and she is afebrile. She denies any chest pain -TSH is normal -Gram stain is negative and culture pending -fluids cytology showed abundant neutrophils suggestive of acute inflammatory response. Will start treatment for acute pericarditis -only 20 cc of bloody pericardial drainage from the catheter overnight - repeat limited echocardiogram today and showed?. Moderate pericardial effusion persists.? 2.4-2.5 cm around the right atrium, 1.3 cm anterior to the right ventricle, minimal apical effusion, 2.5 cm thick posteriorly.? 4. Dilated IVC with poor respiratory collapse. -the nurse as flush the drain drain at my request -chest x-ray was reviewed and I have discussed with Cardiology Dr. Pascual regarding repositioning the catheter (2) Mediastinal mass: Code(s): J98.59 - Other diseases of mediastinum, not elsewhere classified Status: Acute Assessment and Plan: 08/07/2022 chest CTA showed. 3.0 x 2.1 cm mass in the anterior mediastinum. The differential diagnosis includes lymphoma and thymoma. - pericardiocentesis fluid cytology was benign but in general has low diagnostic yield -CT abdomen and pelvis was negative for any lymphadenopathy -Hematology/oncology following -will eventually need biopsy of the lesion (3) Anemia: Code(s): D64.9 - Anemia, unspecified Status: Acute Assessment and Plan: patient's hemoglobin is 9.0 - stool for occult blood has been ordered - vitamin B and folic acid levels are within normal limits - low iron, low transferrin saturation, low TIBC, could be related to anemia of chronic disease, hematology/oncology has been consulted - haptoglobin is pending -LDH elevated (4) Elevated LFTs: Code(s): R79.89 - Other specified abnormal findings of blood chemistry Status: Acute Assessment and Plan: elevated LFTs, -08/07: hepatitis panel is negative -08/07: RUQ ultrasound: normal right upper quadrant ultrasound -CT abdomen pelvis also unremarkable -monitor levels -GI consult (5) Pleural effusion: Code(s): J90 - Pleural effusion, not elsewhere classified Status: Acute Assessment and Plan: Right more than left Will request thoracentesis diagnostic and therapeutic (6) Pulmonary edema: Code(s): J81.1 - Chronic pulmonary edema Status: Acute Assessment and Plan: Low-dose Lasix x 1 Plan DVT prophylaxis: SCDs, patient has a pericardial drain Stress ulcer prophylaxis: not applicable Nutrition: heart healthy diet Code Status: full code Discussed with Dr. Rosenberg from Cardiology Critical Care Time Spent: 30 minutes Due to a high probability of clinically significant, life threatening deterioration, the patient required my highest level of preparedness to intervene emergently and I personally spent this critical care time directly and personally managing the patient. This critical care time included obtaining a history; examining the patient; pulse oximetry; ordering and review of studies; arranging urgent treatment with development of a management plan; evaluation of patient's response to treatment; frequent reassessment; and discussions with other providers. It was exclusive of separately billable procedures and treating other patients and teaching time. Please see Assessment and Plan section and the rest of the note for further information on patient assessment and treatment This dictation may have been done utilizing a voice recognition system. Attempts have been ma
--- NOTE | 2022-08-09 10:01 | WPDGICN ---
Assessment and Plan Assessment and plan (1) Elevated LFTs: Code(s): R79.89 - Other specified abnormal findings of blood chemistry Status: Acute Assessment and Plan: Elevated LFTs likely related to passive congestion of the liver. Ultrasound reveals nose obvious mass or gallstones. Will follow with you (2) Mediastinal mass: Code(s): J98.59 - Other diseases of mediastinum, not elsewhere classified Status: Acute Assessment and Plan: Mediastinal mass of uncertain nature. Oncology following for their opinion. Concern over thymoma or other lesions has been entertained. Ultimately probably a biopsy will need be obtained. (3) Anemia: Code(s): D64.9 - Anemia, unspecified Status: Acute Assessment and Plan: Patient has nonspecific anemia. Iron indices reveal a low iron, low TIBC suspicious for anemia of chronic disease. Serum ferritin pending at this time. Will follow conservatively for now. (4) Pericardial effusion: Code(s): I31.39 - Other pericardial effusion (noninflammatory) Status: Acute Assessment and Plan: Pericardial effusion was drained by cardiology service will continue to follow patient. Suspect this contributes to heart dysfunction and passive congestion the liver. (5) CHF (congestive heart failure): Code(s): I50.9 - Heart failure, unspecified Status: Acute GI Consult Note Consult date/time: 08/09/22 10:01 Reason for consult: elevated LFTs. HPI: Lakeisha Ruiz is a 62 year old female I am asked to see because of elevated LFTs as well as anemia. Patient gives a history of general malaise over the last month or so. Admitted the hospital after a syncopal episode. Patient was found to have pericardial effusion. Pericardiocentesis revealed blood-tinged fluid to be removed. At the time of admission patient was noted to have modest anemia. She denies any obvious signs of GI blood loss. No other bleeding reported. She has had no abdominal pain. No prior history of liver disease. No exposure to hepatitis. Family history noncontributory. Review of Systems Review of Systems: Review of systems noncontributory. [facility] Past Medical History Medical History (Updated 08/09/22 @ 09:48 by Prosper Roa MD) Hypertension Surgical History Surgical History (Updated 08/09/22 @ 00:37 by Hazel Lopez PA-C) History of tonsillectomy Family History Family History Sibling Bladder cancer Father Melanoma Mother Lymphoma Social History Social History (Updated 08/09/22 @ 00:38 by Hazel Lopez PA-C) Social History: Surrogate medical decision maker: Brian Rawlsmonroe, spouse. Code status: Full code. Smoking status: Never smoker Alcohol intake: never Substance use: never Lack of Transportation: No Lack of Food: Never True Current Housing: I Have Housing Concerned About Future Housing: No Difficulty Paying Gas/Electric Bills: No Difficulty Paying for Meds: No Currently Unemployed: No Education: Bachelor's Degree Difficulty w/ Childcare or Family Care: No Spiritual care concerns: No Meds Home Medications and Allergies Home Medications Medication Instructions Recorded Confirmed Type loratadine 10 mg tablet (Claritin) 10 mg PO DAILY 08/07/22 08/07/22 History metoprolol succinate 100 mg 100 mg PO DAILY 08/07/22 08/07/22 History tablet,extended release 24 hr Allergies Allergy/AdvReac Type Severity Reaction Status Date / Time No Known Allergies Allergy Unverified 11/13/16 16:27 Vital Signs Vital Signs - 24 hr 08/08/22 12:00 08/08/22 12:00 08/08/22 12:00 Temperature Pulse Rate 109 H 106 H 108 H Respiratory Rate 25 H 28 H Blood Pressure 142/98 H Pulse Oximetry 95 97 Oxygen Delivery Room Air 08/08/22 14:00 08/08/22 14:00 08/08/22 15:55 Temperature Pulse Rate 106 H 106
[2022-08-09] MEDS: FUROSEMIDE INJ 40 MG/4 ML VIAL 20 MG IV PUSH (10:30)
[2022-08-09 10:31] LABS: Alanine Aminotransferase 77 U/L (6-35); Alkaline Phosphatase 59 U/L (38-126); Anion Gap 2 mmol/L (8-16); Aspartate Amino Transferase 124 U/L (14-36); Bilirubin,Total 0.6 mg/dL (0.2-1.3); Blood Urea Nitrogen 17 mg/dL (7-17); Calcium 7.7 mg/dL (8.4-10.2); Carbon Dioxide 31 mmol/L (22-30); Chloride 98 mmol/L (98-107); Estimated CRCL calculation 92 ml/min; Estimated Glomerular Filt Rate > 60; Glucose 125 mg/dL (65-110); Potassium 3.3 mmol/L (3.4-5.0); Sodium 131 mmol/L (137-145)
[2022-08-09] MEDS: POTASSIUM CHLORIDE 20 MEQ TABLET 40 MEQ PO (10:31)
--- NOTE | 2022-08-09 11:00 | ECG_ITS ---
Measurements Intervals [place] Rate: 78 P: 28 DC: 147 QRS: -6 QRSD: 90 T: 5 QT: 408 QTc: 468 Interpretive Statements SINUS RHYTHM COMPARED TO ECG 08/08/2022 18:52:15 NO SIGNIFICANT CHANGES Electronically Signed On 08-09-2022 19:44:19 AIRCRAFT STRUCTURAL REPAIRER by Lesly Rosenberg M.D.
--- NOTE | 2022-08-09 11:11 | PM.PNCARD ---
Progress Note: A&P Assessment and Plan (1) Pericardial effusion: Code(s): I31.39 - Other pericardial effusion (noninflammatory) Status: Acute Assessment and Plan: Admitted with pericardial effusion with tamponade physiology, status post pericardiocentesis 08/07/2022. Not draining much despite irrigation. Appears to be inflammatory effusion but cytology benign and cultures negative so far. --No longer in tamponade --Will pull catheter back a few cm. -- discussed with Dr. Roa; since this is an inflammatory effusion it may respond to tx. Add colchicine and nonsteroidals. (2) Acute diastolic CHF (congestive heart failure): Code(s): I50.31 - Acute diastolic (congestive) heart failure Status: Acute Assessment and Plan: Acute distolic CHF 2nd pericardial effusion and tamponade. --Lasix 20mg IVP X 1 (3) Pleural effusion: Code(s): J90 - Pleural effusion, not elsewhere classified Status: Acute Assessment and Plan: Residual pelural effusion, due to underlying inflammatory process and CHF. --Discussed w/ Dr. Roa, Lasix 20 mg IVP X 1 --considering thoracentesis. (4) Anemia: Code(s): D64.9 - Anemia, unspecified Status: Acute Assessment and Plan: Acute anemia --Getting iron infusion. (5) Mediastinal mass: Code(s): J98.59 - Other diseases of mediastinum, not elsewhere classified Status: Acute Assessment and Plan: Possible thymoma or lymphoma, no other masses noted. --Eventual biopsy Subjective Date/time seen: Patient admitted with a large pericardial effusion tamponade physiology. Underwent pericardiocentesis with placement of a pigtail pericardial drain on 08/07/[address] Lozano ; bloody drainage. Also found to have a 3 cm mediastinal mass, thymoma versus lymphoma. Had N&V a few days prior to admission, no h/o TB, CTD. 08/09/22 11:11 Not much drainage from pericardial catheter overnight, only 50 cc, but echo still shows a moderate effusion without tamponade physiology. Chest x-ray reviewed, pigtail catheter in appropriate position but the and holes are very cephalad. Catheter was flushed. CT of the abdomen and pelvis showed hepatic congestion consistent with a degree of CHF. Review of Systems Review of Systems: somewhat uncomfortable from the pericardial drain. No shortness of breath, pleuritic pain, nausea, abdominal pain. Exam Const: General: no acute distress Other: Pleasant middle-aged female in no distress. Pericardial drain present, no erythema. Small amount of bloody fluid noted in the pericardial drain bag, no improvement after irrigation. HENMT: Mouth: Yes moist mucous membranes Eyes: General: appearance normal, both eyes and all related structures Sclera: sclerae normal Neck: Neck: supple Resp: Auscultation: diminished lung sounds Other: Tachypneic Cardio: Rate: regular rate and tachycardic Rhythm: regular rhythm Heart sounds: no murmurs and no rubs GI: Inspection: non-distended Skin: General skin exam: normal color Neuro: Speech: normal speech Extrem: General: normal to inspection and no edema Psych: Mental Status: mental status grossly normal Affect: normal affect Objective Data Vital Signs Vital Signs: Vital Signs - 24 hr 08/08/22 12:00 08/08/22 12:00 08/08/22 12:00 Temperature Pulse Rate 109 H 106 H 108 H Respiratory Rate 25 H 28 H Blood Pressure 142/98 H Pulse Oximetry 95 97 Oxygen Delivery Room Air 08/08/22 14:00 08/08/22 14:00 08/08/22 15:55 Temperature Pulse Rate 106 H 106 H 158 H Respiratory Rate 28 H Blood Pressure 132/89 Pulse Oximetry 95 Oxygen Delivery 08/08/22 16:29 08/08/22 16:00 08/08/22 16:00 Temperature 98.2 F Pulse Rate 99 98 142 H Respiratory Rate 27 H Blood Pressure 138/98 H Pulse Oximetry 94 Oxygen Delivery 08/08/22 18:00 08/08/22 18:00 08/08/22 16:00 Temperature Pulse Rate 8
[2022-08-09 11:31] LABS: Lactate Dehydrogenase 281 U/L (120-246)
[2022-08-09 16:43] LABS: Pleural fluid source Pleural fluid
[2022-08-09 16:45] LABS: Appearance Pleural Fluid Cloudy (Clear); Color Pleural Fluid Yellow (Colorless); Lymphocytes Pleural Fluid 95 %; Monocytes Pleural Fluid 2 %; Neutrophils Pleural Fluid 3 % (0-25)
[2022-08-09] MEDS: IBUPROFEN 400 MG TABLET PO (17:16)
[2022-08-09] MEDS: COLCHICINE 0.6 MG TABLET 0.5 MG PO (20:55)
[2022-08-10] VITALS (17 sets, daily range): BP systolic 89–134; BP diastolic 63–94; PULSE 66–83; RESP 14–26; TEMP 36.4–36.6; O2SAT 93–98
--- NOTE | 2022-08-10 00:15 | ECG_ITS ---
Measurements Intervals [place] Rate: 70 P: 25 W[place]: 155 QRS: -10 QRSD: 84 T: -7 QT: 394 QTc: 426 Interpretive Statements SINUS RHYTHM POOR R-WAVE PROGRESSION NONSPECIFIC T-WAVE FLATTENING COMPARED TO ECG 08/09/2022 11:36:53 NO SIGNIFICANT CHANGE Electronically Signed On 08-10-2022 8:29:06 E COMMERCE ARCHITECT by Lesly Rosenberg M.D.
[2022-08-10 03:51] LABS: Hematocrit 27.6 % (37.0-47.0); Hemoglobin 8.7 g/dL (12.0-15.0); Mean Corpuscular HGB Conc 31.5 g/dl (32-36); Mean Corpuscular Hemoglobin 25.2 pg (26-34); Mean Platelet Volume 9.5 fl (7.4-10.4); Platelet Count Result 387 k/mm3 (150-375); Red Blood Count 3.45 M/mm3 (4.2-5.4); Red Cell Distribution Width 15.1 % (11.5-14.5); White Blood Count 5.3 K/mm3 (4.5-10.0)
[2022-08-10 04:07] LABS: Alanine Aminotransferase 63 U/L (6-35); Albumin Level 2.9 g/dL (3.5-5.1); Alkaline Phosphatase 58 U/L (38-126); Anion Gap 4 mmol/L (8-16); Aspartate Amino Transferase 88 U/L (14-36); Bilirubin,Total 0.5 mg/dL (0.2-1.3); Blood Urea Nitrogen 16 mg/dL (7-17); Calcium 7.7 mg/dL (8.4-10.2); Carbon Dioxide 30 mmol/L (22-30); Chloride 98 mmol/L (98-107); Estimated CRCL calculation 92 ml/min; Estimated Glomerular Filt Rate > 60; Glucose 96 mg/dL (65-110); Magnesium 2.2 mg/dL (1.6-2.3); Phosphorus 3.2 mg/dL (2.5-4.5); Potassium 3.3 mmol/L (3.4-5.0); Sodium 132 mmol/L (137-145)
--- NOTE | 2022-08-10 07:29 | PM.IMPN ---
Progress Note: A&P Assessment and Plan (1) Pericardial effusion: Code(s): I31.39 - Other pericardial effusion (noninflammatory) Status: Acute Assessment and Plan: Cardiology consult appreciated, pericardial drain in place status post pericardiocentesis Echo from 08/09 shows persistent moderate pericardial effusion, pericardial drain with minimal output, 20 ml since midnight Will defer further management to Cardiology Repeat echo for tomorrow, then plan to pull drain will be discussed (2) Mediastinal mass: Code(s): J98.59 - Other diseases of mediastinum, not elsewhere classified Status: Acute Assessment and Plan: Appreciate hematology/oncology consultation, mediastinal mass concerning for lymphoma versus thymoma, no reactive lymphadenopathy noted Pericardial fluid cytology showed no evidence of malignancy CT abdomen pelvis performed showing persistent pericardial effusion with associated hepatic congestion, stable bilateral pleural effusions with associated atelectasis, no lymphadenopathy noted Suspected mass will need to be biopsied? (3) Anemia: Code(s): D64.9 - Anemia, unspecified Status: Acute Assessment and Plan: Appreciate hematology consultation, appears to have iron deficiency anemia, management per Hematology (4) Elevated LFTs: Code(s): R79.89 - Other specified abnormal findings of blood chemistry Status: Acute Assessment and Plan: improving, hepatitis panel negative Plan DVT prophylaxis: SCDs, patient has a pericardial drain Stress ulcer prophylaxis: not applicable Nutrition: heart healthy diet Code Status: full code Subjective Date/time seen: 08/10/22 07:29 Interval history: No overnight events noted. No chest pain or shortness of breath. No nausea, vomiting or diarrhea. No fevers or chills. Sitting up to chair and bedside commode, feels well. Review of Systems Review of Systems: 12 point review of systems was assessed and was negative except as noted in the HPI Exam Narrative: General: No acute distress, alert and oriented per baseline HEENT: Atraumatic, normocephalic, mucous membranes moist CV: 74 on tele, NSR, somewhat muffled heart sounds? Lungs: Unlabored breathing, no audible wheeze Abdomen: Soft, nondistended Extremities: Normal to inspection Skin: No rashes noted, no lesions or wounds seen Psych: Euthymic, normal affect Objective Data Vital Signs Vital Signs: Vital Signs - 24 hr 08/09/22 09:09 08/09/22 08:00 08/09/22 08:00 Temperature Pulse Rate 88 88 85 Respiratory Rate 22 H Blood Pressure Pulse Oximetry 94 Oxygen Delivery Room Air 08/09/22 10:00 08/09/22 08:00 08/09/22 10:06 Temperature 98.6 F Pulse Rate 85 84 85 Respiratory Rate 28 H 25 H Blood Pressure 109/93 H 124/80 Pulse Oximetry 95 94 Oxygen Delivery 08/09/22 12:00 08/09/22 12:00 08/09/22 12:00 Temperature Pulse Rate 77 77 77 Respiratory Rate 28 H 28 H Blood Pressure 115/88 Pulse Oximetry 99 99 Oxygen Delivery Room Air 08/09/22 14:00 08/09/22 14:00 08/09/22 16:00 Temperature Pulse Rate 76 76 75 Respiratory Rate 28 H 26 H Blood Pressure 124/76 Pulse Oximetry 92 93 Oxygen Delivery Room Air 08/09/22 16:00 08/09/22 16:00 08/09/22 18:00 Temperature 98.5 F Pulse Rate 76 77 81 Respiratory Rate 26 H Blood Pressure 111/76 Pulse Oximetry 93 Oxygen Delivery 08/09/22 18:00 08/09/22 19:56 08/09/22 20:56 Temperature Pulse Rate 81 79 Respiratory Rate 24 H Blood Pressure 126/87 Pulse Oximetry 94 Oxygen Delivery Room Air 08/09/22 20:00 08/09/22 20:00 08/09/22 22:00 Temperature 98.5 F 97.8 F Pulse Rate 83 81 72 Respiratory Rate 26 H 24 H Blood Pressure 116/74 114/77 Pulse Oximetry 94 Oxygen Delivery 08/09/22 22:00 08/10/22 00:00 08/10/22 00:00 Temperature 97.8 F Pulse Rate 74 70 70 Respiratory Rate 16 B
--- NOTE | 2022-08-10 08:58 | WPDINTPN ---
Progress Note: A&P Assessment and Plan (1) Pericardial effusion: Code(s): I31.39 - Other pericardial effusion (noninflammatory) Status: Acute Assessment and Plan: patient presented with exertional dyspnea and syncope - CTA chest showed large pleural effusion, no PE - -08/07 status post pericardiocentesis with removal of 400 mL of marilou colored fluid which has been sent for cytology, cell count, Gram stain and culture -her WBCs normal and she is afebrile. She denies any chest pain -TSH is normal -Gram stain is negative and culture pending -fluids cytology showed abundant neutrophils suggestive of acute inflammatory response. Patient was started on treatment for acute pericarditis with ibuprofen and colchicine 08/09-only 20 cc of bloody pericardial drainage from the catheter overnight - repeat limited echocardiogram today and showed?. Moderate pericardial effusion persists.? 2.4-2.5 cm around the right atrium, 1.3 cm anterior to the right ventricle, minimal apical effusion, 2.5 cm thick posteriorly.? 4. Dilated IVC with poor respiratory collapse. The drain was repositioned by Cardiology 08/10 -only 20 mL of bloody drainage from pericardial drain overnight. Chest x-ray reviewed for the placement of the catheter I have discussed with Cardiology Dr. Pascual plan to repeat echo tomorrow (2) Mediastinal mass: Code(s): J98.59 - Other diseases of mediastinum, not elsewhere classified Status: Acute Assessment and Plan: 08/07/2022 chest CTA showed. 3.0 x 2.1 cm mass in the anterior mediastinum. The differential diagnosis includes lymphoma and thymoma. - pericardiocentesis fluid cytology was benign but in general has low diagnostic yield -CT abdomen and pelvis was negative for any lymphadenopathy -Hematology/oncology following -will eventually need biopsy of the lesion (3) Anemia: Code(s): D64.9 - Anemia, unspecified Status: Acute Assessment and Plan: patient's hemoglobin is 9.0 - stool for occult blood has been ordered - vitamin B and folic acid levels are within normal limits - low iron, low transferrin saturation, low TIBC, could be related to anemia of chronic disease, hematology/oncology is following - haptoglobin is pending -LDH elevated -patient received IV iron (4) Elevated LFTs: Code(s): R79.89 - Other specified abnormal findings of blood chemistry Status: Acute Assessment and Plan: elevated LFTs, -08/07: hepatitis panel is negative -08/07: RUQ ultrasound: normal right upper quadrant ultrasound -CT abdomen pelvis also unremarkable -monitor levels which are improving -GI consult (5) Pleural effusion: Code(s): J90 - Pleural effusion, not elsewhere classified Status: Acute Assessment and Plan: Right more than left 08/09 status post left thoracentesis at 400 mL fluid was removed LDH glucose and protein levels are pending Neutrophil predominant Pleural fluid was sent for cytology which is pending (6) Pulmonary edema: Code(s): J81.1 - Chronic pulmonary edema Status: Acute Assessment and Plan: Good urine output in response to Lasix yesterday (7) Acute diastolic CHF (congestive heart failure): Code(s): I50.31 - Acute diastolic (congestive) heart failure Status: Acute Assessment and Plan: Lasix as above (8) Electrolyte abnormality: Code(s): E87.8 - Other disorders of electrolyte and fluid balance, not elsewhere classified Status: Acute Assessment and Plan: Replace low potassium Plan DVT prophylaxis: SCDs, patient has a pericardial drain anticoagulation is on hold. Patient also may need repeat procedures Nutrition: heart healthy diet Code Status: full code Discussed with Dr. Rosenberg from Cardiology Incentive spirometry Up in chair Transfer out of ICU today Subjective Date/time seen: 08/10/22 Overnight events reviewed. Afebrile 20 mL of drainage from the helen
--- NOTE | 2022-08-10 09:09 | WPDGIPROGNO ---
Progress Note: A&P Assessment and Plan (1) Elevated LFTs: Code(s): R79.89 - Other specified abnormal findings of blood chemistry Status: Acute Assessment and Plan: elevated LFTs noted. Hepatitis serologies unremarkable. I suspect this is from passive congestion liver related to heart issues. (2) Anemia: Code(s): D64.9 - Anemia, unspecified Status: Acute Assessment and Plan: Anemia noted. No obvious bleeding reported. With low iron, low TIBC elevated ferritin all suspicious for anemia of chronic disease. Likely related to mediastinal issues and cardiopulmonary effusions. (3) Mediastinal mass: Code(s): J98.59 - Other diseases of mediastinum, not elsewhere classified Status: Acute Assessment and Plan: Etiology unclear. May eventually need a biopsy (4) Pleural effusion: Code(s): J90 - Pleural effusion, not elsewhere classified Status: Acute Assessment and Plan: status post thoracentesis. (5) Pericardial effusion: Code(s): I31.39 - Other pericardial effusion (noninflammatory) Status: Acute Assessment and Plan: Drained by Cardiology. Workup in progress (6) CHF (congestive heart failure): Code(s): I50.9 - Heart failure, unspecified Status: Acute Assessment and Plan: Likely on the basis pericardial effusion and tamponade. This appears improved Subjective Date/time seen: 08/10/22 09:09 Interval history: Patient comfortable at rest. Had paracentesis as well as thoracentesis. No significant pain. Shortness of breath improved. Admitted after a syncopal episode. Review of Systems Review of Systems: Review of systems noncontributory. Exam Narrative: On exam patient is comfortable at rest. Lung exam unremarkable. Abdomen bowel sounds present soft nontender with no organomegaly. Objective Data Vital Signs Vital Signs: Vital Signs - 24 hr 08/09/22 10:00 08/09/22 10:06 08/09/22 12:00 Temperature Pulse Rate 85 85 77 Respiratory Rate 25 H 28 H Blood Pressure 124/80 115/88 Pulse Oximetry 94 99 Oxygen Delivery 08/09/22 12:00 08/09/22 12:00 08/09/22 14:00 Temperature Pulse Rate 77 77 76 Respiratory Rate 28 H Blood Pressure Pulse Oximetry 99 Oxygen Delivery Room Air 08/09/22 14:00 08/09/22 16:00 08/09/22 16:00 Temperature 98.5 F Pulse Rate 76 75 76 Respiratory Rate 28 H 26 H 26 H Blood Pressure 124/76 111/76 Pulse Oximetry 92 93 93 Oxygen Delivery Room Air 08/09/22 16:00 08/09/22 18:00 08/09/22 18:00 Temperature Pulse Rate 77 81 81 Respiratory Rate 24 H Blood Pressure 126/87 Pulse Oximetry 94 Oxygen Delivery 08/09/22 19:56 08/09/22 20:56 08/09/22 20:00 Temperature Pulse Rate 79 83 Respiratory Rate Blood Pressure Pulse Oximetry Oxygen Delivery Room Air 08/09/22 20:00 08/09/22 22:00 08/09/22 22:00 Temperature 98.5 F 97.8 F Pulse Rate 81 72 74 Respiratory Rate 26 H 24 H Blood Pressure 116/74 114/77 Pulse Oximetry 94 Oxygen Delivery 08/10/22 00:00 08/10/22 00:00 08/10/22 00:00 Temperature 97.8 F Pulse Rate 70 70 Respiratory Rate 16 Blood Pressure 89/63 L Pulse Oximetry 94 Oxygen Delivery Room Air 08/10/22 02:07 08/10/22 02:00 08/10/22 02:00 Temperature Pulse Rate 69 66 Respiratory Rate 14 Blood Pressure 94/70 L Pulse Oximetry 96 96 Oxygen Delivery Room Air 08/10/22 03:55 08/10/22 06:00 08/10/22 04:00 Temperature 97.8 F 97.9 F Pulse Rate 71 70 70 Respiratory Rate 20 20 Blood Pressure 103/77 121/73 Pulse Oximetry 95 96 Oxygen Delivery 08/10/22 04:00 08/10/22 06:00 Temperature Pulse Rate 71 Respiratory Rate Blood Pressure Pulse Oximetry Oxygen Delivery Room Air Intake/Output Intake/Output: Intake & Output 08/07/22 08/08/22 08/09/22 08/10/22 23:59 23:59 23:59 23:59 Intake Total 240 1610 570 Output Tot
[2022-08-10] MEDS: COLCHICINE 0.6 MG TABLET 0.5 MG PO ×2 (09:16→20:49)
[2022-08-10] MEDS: POTASSIUM CHLORIDE 20 MEQ TABLET.ER 40 MEQ PO ×2 (09:16→13:17)
[2022-08-10] MEDS: IBUPROFEN 400 MG TABLET PO ×3 (09:16→17:40)
[2022-08-10] MEDS: SOTALOL HCL 40 MG TABLET PO ×2 (09:16→20:48)
[2022-08-10] MEDS: IRON SUCROSE COMPLEX 500 MG in SODIUM CHLORIDE 0.9% IV 250 ML 78.57 MG IVPB (09:28)
--- NOTE | 2022-08-10 09:45 | PM.PNCARD ---
Progress Note: A&P Assessment and Plan (1) Pericardial effusion: Code(s): I31.39 - Other pericardial effusion (noninflammatory) Status: Acute Assessment and Plan: Admitted with pericardial effusion with tamponade physiology, status post pericardiocentesis 08/07/2022. Not draining much despite irrigation. Appears to be inflammatory effusion but cytology benign and cultures negative so far. -- No longer in tamponade -- Will pull catheter back again a few cm. -- Cont. colchicine and nonsteroidals. -- Will check for a connective tissue disease with sed rate, rheumatoid factor, LAUREN etc.. --Increase activity -- Recheck echo tomorrow, consider discontinuing the catheter or repositioning the pericardial catheter. --Discussed with Dr. Roa, pt (2) Acute diastolic CHF (congestive heart failure): Code(s): I50.31 - Acute diastolic (congestive) heart failure Status: Acute Assessment and Plan: Acute distolic CHF 2nd pericardial effusion and tamponade. -- Responded to Lasix 20mg IVP X 1 -- mildly hypokalemic, repleted (3) Pleural effusion: Code(s): J90 - Pleural effusion, not elsewhere classified Status: Acute Assessment and Plan: Pleural effusion present since May, suggesting a longstanding process. -- Status post thoracentesis (4) Anemia: Code(s): D64.9 - Anemia, unspecified Status: Acute Assessment and Plan: iron deficiency anemia --Getting iron infusion. (5) Mediastinal mass: Code(s): J98.59 - Other diseases of mediastinum, not elsewhere classified Status: Acute Assessment and Plan: Possible thymoma or lymphoma, no other masses noted. --Eventual biopsy? --Check for myasthenia gravis with acetylcholine receptor antibodies (not on lab menu; asked RN to check w/ lab). --Dr. Bear has been consulted. Plan Spent 46 minutes of nonoverlapping time reviewing the chart, personally reviewing some imaging, reviewing labs, counseling patient, counseling by phone, and coordinating care with the produce buyer. Subjective Date/time seen: Patient admitted with a large pericardial effusion tamponade physiology.? Underwent pericardiocentesis with placement of a pigtail pericardial drain on 08/07/[address] Lozano ; 400 cc's bloody drainage.? Also found to have a 3 cm mediastinal mass, thymoma versus lymphoma, and a pleural effusion.? Had N&V a few days prior to admission, no h/o TB, CTD. 08/09/22? 11:11 Not much drainage from pericardial catheter overnight, only 50 cc, but echo still shows a moderate effusion without tamponade physiology.? Chest x-ray reviewed, pigtail catheter in appropriate position but the and holes are very cephalad.? Catheter was flushed.? CT of the abdomen and pelvis showed hepatic congestion consistent with a degree of CHF. 08/10/22 09:45 Had thoracentesis this morning with removal of 400 cc of yellowish fluid. Good diuresis from the furosemide 20 mg IV push yesterday. patient was a little bradycardic so her sotalol dose was reduced to 40 mg b.i.d.. Pericardial drainage 40 cc's overnight. On room air. Cultures are still negative. relates weight loss, fatigue for months. Chest x-ray 05/2022 showed normal heart size but moderate effusions. Personally reviewed. telemetry: NSR, no AFib Review of Systems Review of Systems: no chest pain, shortness of breath, palpitations, abdominal pain, bleeding Exam Const: General: no acute distress Other: Pleasant middle-aged female in no distress. Pericardial drain present, no erythema. Small amount of bloody fluid noted in the pericardial drain bag , clearing. HENMT: Mouth: Yes moist mucous membranes Eyes: General: appearance normal, both eyes and all related structures Sclera: sclerae normal Neck: Neck: supple Resp: Auscultation: diminished lung sounds Cardio: Rate: regular rate Rhythm: regular rhythm Heart sounds: no mur
[2022-08-10 11:02] LABS: IFOB Positive Control Positive; Immunochemical Fecal Occult Bl Negative (N)
[2022-08-10 11:38] LABS: Erythrocyte Sedimentation Rate 92 mm/hr (0-20)
[2022-08-10 12:32] LABS: Rheumatoid Factor < 12.0 IU/ML (<12)
--- NOTE | 2022-08-10 12:35 | ECG_ITS ---
Measurements Intervals [place] Rate: 67 P: 8 NM: 162 QRS: -7 QRSD: 85 T: -4 QT: 437 QTc: 464 Interpretive Statements SINUS RHYTHM POOR R-WAVE PROGRESSION WARNING: DATA QUALITY MAY AFFECT INTERPRETATION COMPARED TO ECG 08/10/2022 00:17:03 NO SIGNIFICANT CHANGES Electronically Signed On 08-10-2022 18:41:42 R[employer]ETRACK STEWARD by Lesly Rosenberg M.D.
--- NOTE | 2022-08-10 23:05 | ECG_ITS ---
Measurements Intervals [place] Rate: 77 P: 10 VT: 154 QRS: -5 QRSD: 80 T: 4 QT: 394 QTc: 448 Interpretive Statements SINUS RHYTHM POOR R-WAVE PROGRESSION ABNORMAL ECG WARNING: DATA QUALITY MAY AFFECT INTERPRETATION COMPARED TO ECG 08/10/2022 13:26:42 NO SIGNIFICANT CHANGES Electronically Signed On 08-11-2022 12:06:34 LAYER OFF by Ron Frye M.D.
[2022-08-11] VITALS (15 sets, daily range): BP systolic 100–136; BP diastolic 69–91; PULSE 66–83; RESP 18–22; TEMP 36.4–36.9; O2SAT 95–99
--- NOTE | 2022-08-11 | ECHOL_ITS ---
Patient Info Name: Lakeisha Ruiz Age: 62 years : 1960 Gender: Female Ht: 66 in Wt: 163 lbs BSA: 1.87 m2 HR: 78 bpm BP: 121 / 80 mmHg Heart Rhythm: Sinus Rhythm Technical Quality: Fair Exam Date: 08/11/2022 8:03 AM Exam Location: [facility] Card Pulmonary Patient Status: Inpatient Admit Date: 08/07/2022 Staff Ordering Physician: Lesly Rosenberg MD Works Manager: Zoey Steele RDCS Attending Provider: Ron Maher MD Referring Physician: Chet ROSE; Exam Type: CA echo limited Study Info Indications - re-eval peric effusion Limited two-dimensional transthoracic echocardiogram is performed. Summary 1. Small circumferential pericardial effusion significantly decreased in size compared to last week. 2. Otherwise unremarkable limited echocardiogram. Left Ventricle Left ventricular chamber dimension is normal. Left ventricular systolic function is normal, estimated at 60-65%. Right Ventricle Right ventricular chamber dimension is normal. Left Atria Left atrial chamber dimension is normal. Right Atria Right atrial chamber dimension is normal. Aortic Valve The aortic valve is normal. Pulmonic Valve The pulmonic valve is not well visualized. Mitral Valve The mitral valve has normal leaflets. Tricuspid Valve The tricuspid valve leaflets are normal. Pericardium/Pleural There is small circumferential pericardial effusion. Aorta The aortic root size at the sinus of Valsalva is normal. Report Signatures
[2022-08-11 03:20] LABS: Hematocrit 29.3 % (37.0-47.0); Hemoglobin 9.4 g/dL (12.0-15.0); Mean Corpuscular HGB Conc 32.1 g/dl (32-36); Mean Corpuscular Hemoglobin 25.8 pg (26-34); Mean Corpuscular Volume 80.5 fl (80-100); Mean Platelet Volume 9.3 fl (7.4-10.4); Platelet Count Result 438 k/mm3 (150-375); Red Blood Count 3.64 M/mm3 (4.2-5.4); Red Cell Distribution Width 15.2 % (11.5-14.5); White Blood Count 5.4 K/mm3 (4.5-10.0)
[2022-08-11 03:39] LABS: Alanine Aminotransferase 49 U/L (6-35); Albumin Level 2.8 g/dL (3.5-5.1); Alkaline Phosphatase 60 U/L (38-126); Anion Gap 5 mmol/L (8-16); Aspartate Amino Transferase 62 U/L (14-36); Bilirubin,Total 0.4 mg/dL (0.2-1.3); Blood Urea Nitrogen 15 mg/dL (7-17); Calcium 7.8 mg/dL (8.4-10.2); Carbon Dioxide 29 mmol/L (22-30); Chloride 104 mmol/L (98-107); Estimated CRCL calculation 92 ml/min; Estimated Glomerular Filt Rate > 60; Glucose 93 mg/dL (65-110); Magnesium 2.3 mg/dL (1.6-2.3); Phosphorus 3.1 mg/dL (2.5-4.5); Potassium 3.9 mmol/L (3.4-5.0); Sodium 138 mmol/L (137-145)
--- NOTE | 2022-08-11 08:03 | PM.IMPN ---
Progress Note: A&P Assessment and Plan (1) Pericardial effusion: Code(s): I31.39 - Other pericardial effusion (noninflammatory) Status: Acute Assessment and Plan: Cardiology consult appreciated, pericardial drain in place status post pericardiocentesis Echo from 08/09 showed persistent moderate pericardial effusion Echo from 08/11 showed small pericardial effusion, pericardial drain pulled by Cardiology, monitor Anticipate discharge soon, continue colchicine and ibuprofen (2) Mediastinal mass: Code(s): J98.59 - Other diseases of mediastinum, not elsewhere classified Status: Acute Assessment and Plan: Appreciate hematology/oncology consultation, mediastinal mass concerning for lymphoma versus thymoma, no reactive lymphadenopathy noted Pericardial fluid cytology showed no evidence of malignancy CT abdomen pelvis performed showing persistent pericardial effusion with associated hepatic congestion, stable bilateral pleural effusions with associated atelectasis, no lymphadenopathy noted Suspected mass will need to be biopsied? (3) Anemia: Code(s): D64.9 - Anemia, unspecified Status: Acute Assessment and Plan: Appreciate hematology consultation, appears to have iron deficiency anemia, management per Hematology (4) Elevated LFTs: Code(s): R79.89 - Other specified abnormal findings of blood chemistry Status: Acute Assessment and Plan: Continue to improve, hepatitis panel negative Plan DVT prophylaxis: SCDs Stress ulcer prophylaxis: not applicable Nutrition: heart healthy diet Code Status: full code Subjective Date/time seen: 08/11/22 08:03 Interval history: No overnight events noted. No chest pain or shortness of breath. No nausea, vomiting or diarrhea. No fevers or chills. Sitting up, eating well, feels well. Review of Systems Review of Systems: 12 point review of systems was assessed and was negative except as noted in the HPI Exam Narrative: General: No acute distress, alert and oriented per baseline HEENT: Atraumatic, normocephalic, mucous membranes moist CV: Regular rate and rhythm, S1-S2, no murmurs Lungs: Unlabored breathing, no audible wheeze Abdomen: Soft, nondistended Extremities: Normal to inspection Skin: No rashes noted, no lesions or wounds seen Psych: Euthymic, normal affect Objective Data Vital Signs Vital Signs: Vital Signs - 24 hr 08/10/22 09:16 08/10/22 10:00 08/10/22 10:00 Temperature Pulse Rate 79 83 83 Respiratory Rate 26 H Blood Pressure 123/72 Pulse Oximetry 93 Oxygen Delivery 02/12/23 12:00 08/10/22 12:00 08/10/22 12:00 Temperature 97.8 F Pulse Rate 69 71 Respiratory Rate 24 H Blood Pressure 126/87 Pulse Oximetry 97 97 Oxygen Delivery Room Air 08/10/22 14:00 08/10/22 14:00 08/10/22 16:00 Temperature Pulse Rate 74 75 Respiratory Rate 26 H Blood Pressure 118/89 Pulse Oximetry 96 97 Oxygen Delivery Room Air 08/10/22 16:00 08/10/22 16:00 08/10/22 18:00 Temperature 97.8 F Pulse Rate 74 74 78 Respiratory Rate 24 H Blood Pressure 125/94 H Pulse Oximetry 98 Oxygen Delivery 08/10/22 20:48 08/10/22 20:00 08/10/22 20:00 Temperature 97.6 F Pulse Rate 74 74 74 Respiratory Rate 20 Blood Pressure 115/75 Pulse Oximetry 96 Oxygen Delivery 08/10/22 20:00 08/10/22 22:00 08/10/22 23:59 Temperature Pulse Rate 82 74 Respiratory Rate Blood Pressure Pulse Oximetry 96 Oxygen Delivery Room Air 08/11/22 00:00 08/11/22 00:00 08/11/22 02:00 Temperature 97.8 F Pulse Rate 74 74 Respiratory Rate 20 Blood Pressure 100/69 Pulse Oximetry 96 95 Oxygen Delivery Room Air 08/11/22 04:00 08/11/22 04:00 08/11/22 04:00 Temperature 97.7 F Pulse Rate 76 76 Respiratory Rate 20 Blood Pressure 121/80 Pulse Oximetry 96 96 Oxygen Delivery Room Air 08/11/22 06:00 Temper
[2022-08-11] MEDS: IBUPROFEN 400 MG TABLET PO ×3 (09:08→18:06)
[2022-08-11] MEDS: SOTALOL HCL 40 MG TABLET PO ×2 (09:08→21:12)
[2022-08-11] MEDS: COLCHICINE 0.6 MG TABLET PO ×2 (09:17→21:12)
--- NOTE | 2022-08-11 10:31 | PM.PNCARD ---
Progress Note: A&P Assessment and Plan (1) Pericardial effusion: Code(s): I31.39 - Other pericardial effusion (noninflammatory) Status: Acute (2) Mediastinal mass: Code(s): J98.59 - Other diseases of mediastinum, not elsewhere classified Status: Acute Plan 62-year-old lady without previous cardiac history presents with several months of feeling ill she has had enlarging pleural and pericardial effusions. The pericardial fluid analysis does not show any apparent malignant cells. She has had minimal drainage in the last 48 hours and effusion is now small by echo this morning. The pericardial drain was therefore removed at the bedside uneventfully. Most likely diagnosis is cirrhosis itis related to some sort of connective tissue disorder there do not appear to be any malignant cells in the pericardial fluid. She is now being treated with anti-inflammatory medication and colchicine. Ron Frye MD [facility] Subjective Date/time seen: Date of service: 08/11/22 10:31 Interval history: Follow-up visit in this 62-year-old lady with: Large circumferential pericardial effusion with borderline evidence of tamponade/hemodynamic embarrassment on presentation last week. The effusion was drained percutaneously in the cardiac catheterization lab. A pigtail catheter remains in place at this time. Patient has been more stable. He she has no complaints this morning and feels reasonably well. Exam Const: General: comfortable and no acute distress Other: Pleasant white female appearing her stated age no distress of any kind HENMT: Mouth: Yes moist mucous membranes Eyes: Sclera: sclerae normal Neck: Neck: supple and no JVD Resp: Effort & Inspection: normal respiratory effort Auscultation: clear to auscultation bilaterally Cardio: Rate: regular rate Rhythm: regular rhythm Other: No murmur no audible rub GI: GI Palp: Yes Soft to palpation Auscultation: normal bowel sounds Skin: General skin exam: normal color Neuro: Other: Alert and oriented x3 Extrem: Other: Normal perfusion, no edema Objective Data Vital Signs Vital Signs: Vital Signs - 24 hr 08/10/22 12:00 08/10/22 12:00 08/10/22 12:00 Temperature 36.6 C Pulse Rate 69 71 Respiratory Rate 24 H Blood Pressure 126/87 Pulse Oximetry 97 97 Oxygen Delivery Room Air 08/10/22 14:00 08/10/22 14:00 08/10/22 16:00 Temperature Pulse Rate 74 75 Respiratory Rate 26 H Blood Pressure 118/89 Pulse Oximetry 96 97 Oxygen Delivery Room Air 08/10/22 16:00 08/10/22 16:00 08/10/22 18:00 Temperature 36.6 C Pulse Rate 74 74 78 Respiratory Rate 24 H Blood Pressure 125/94 H Pulse Oximetry 98 Oxygen Delivery 08/10/22 20:48 08/10/22 20:00 08/10/22 20:00 Temperature 36.4 C Pulse Rate 74 74 74 Respiratory Rate 20 Blood Pressure 115/75 Pulse Oximetry 96 Oxygen Delivery 08/10/22 20:00 08/10/22 22:00 08/10/22 23:59 Temperature Pulse Rate 82 74 Respiratory Rate Blood Pressure Pulse Oximetry 96 Oxygen Delivery Room Air 08/11/22 00:00 08/11/22 00:00 08/11/22 02:00 Temperature 36.6 C Pulse Rate 74 74 Respiratory Rate 20 Blood Pressure 100/69 Pulse Oximetry 96 95 Oxygen Delivery Room Air 08/11/22 04:00 08/11/22 04:00 08/11/22 04:00 Temperature 36.5 C Pulse Rate 76 76 Respiratory Rate 20 Blood Pressure 121/80 Pulse Oximetry 96 96 Oxygen Delivery Room Air 08/11/22 06:00 08/11/22 09:08 Temperature Pulse Rate 72 80 Respiratory Rate Blood Pressure Pulse Oximetry Oxygen Delivery Intake/Output Intake/Output: Intake & Output 08/08/22 08/09/22 08/10/22 08/11/22 23:59 23:59 23:59 23:59 Intake Total 6944 072 5342 250 Output Total 950 3090 950 [address] [place] [phone] 25 Meds/Results Medications: Active Medications Generic Name Dose Route Start Last Admin Trade Name Freq PRN Reason Stop Dose Admin Co
--- NOTE | 2022-08-11 11:45 | WPDGIPROGNO ---
Progress Note: A&P Assessment and Plan (1) Mediastinal mass: Code(s): J98.59 - Other diseases of mediastinum, not elsewhere classified Status: Acute Assessment and Plan: Mediastinal mass of uncertain etiology. Anticipate biopsy will be necessary to further define this. (2) Elevated LFTs: Code(s): R79.89 - Other specified abnormal findings of blood chemistry Status: Acute Assessment and Plan: LFTs continue to improve as cardiac tamponade has now improved. Suspect this was from passive congestion of the liver. No indication of cirrhosis by imaging studies. (3) Normocytic anemia: Code(s): D64.9 - Anemia, unspecified Status: Acute Assessment and Plan: Anemia is stable. I suspect this is anemia of chronic disease. Stool Hemoccult negative. Iron is low, TIBC is low. Ferritin is elevated. Continue to monitor. Iron infusion has been given. (4) Pleural effusion: Code(s): J90 - Pleural effusion, not elsewhere classified Status: Acute Assessment and Plan: Pleural effusion was drained with no evidence of malignant cells. (5) Pericardial effusion: Code(s): I31.39 - Other pericardial effusion (noninflammatory) Status: Acute Assessment and Plan: Patient had pericardial effusion. Drainage tube now removed. Did have blood tinged drainage. No evidence of malignant cells. Etiology for this remains unclear in my mind. Subjective Date/time seen: 08/11/22 11:45 Interval history: Patient alert comfortable this morning. Review of Systems Review of Systems: Review of systems noncontributory. Exam Narrative: Physical exam reveals patient be alert. Lungs are clear. Heart without murmur. Abdomen soft nontender with no organomegaly. Objective Data Vital Signs Vital Signs: Vital Signs - 24 hr 08/10/22 12:00 08/10/22 12:00 08/10/22 12:00 Temperature 97.8 F Pulse Rate 69 71 Respiratory Rate 24 H Blood Pressure 126/87 Pulse Oximetry 97 97 Oxygen Delivery Room Air 08/10/22 14:00 08/10/22 14:00 08/10/22 16:00 Temperature Pulse Rate 74 75 Respiratory Rate 26 H Blood Pressure 118/89 Pulse Oximetry 96 97 Oxygen Delivery Room Air 08/10/22 16:00 08/10/22 16:00 08/10/22 18:00 Temperature 97.8 F Pulse Rate 74 74 78 Respiratory Rate 24 H Blood Pressure 125/94 H Pulse Oximetry 98 Oxygen Delivery 08/10/22 20:48 08/10/22 20:00 08/10/22 20:00 Temperature 97.6 F Pulse Rate 74 74 74 Respiratory Rate 20 Blood Pressure 115/75 Pulse Oximetry 96 Oxygen Delivery 08/10/22 20:00 08/10/22 22:00 08/10/22 23:59 Temperature Pulse Rate 82 74 Respiratory Rate Blood Pressure Pulse Oximetry 96 Oxygen Delivery Room Air 08/11/22 00:00 08/11/22 00:00 08/11/22 02:00 Temperature 97.8 F Pulse Rate 74 74 Respiratory Rate 20 Blood Pressure 100/69 Pulse Oximetry 96 95 Oxygen Delivery Room Air 08/11/22 04:00 08/11/22 04:00 08/11/22 04:00 Temperature 97.7 F Pulse Rate 76 76 Respiratory Rate 20 Blood Pressure 121/80 Pulse Oximetry 96 96 Oxygen Delivery Room Air 08/11/22 06:00 08/11/22 09:08 08/11/22 08:00 Temperature Pulse Rate 72 80 76 Respiratory Rate Blood Pressure Pulse Oximetry Oxygen Delivery 08/11/22 10:00 08/11/22 08:00 08/11/22 08:00 Temperature 97.8 F Pulse Rate 74 83 Respiratory Rate 22 H Blood Pressure 136/91 H Pulse Oximetry 98 98 Oxygen Delivery Room Air Intake/Output Intake/Output: Intake & Output 08/08/22 08/09/22 08/10/22 08/11/22 23:59 23:59 23:59 23:59 Intake Total 3357 780 6138 730 Output Total 950 3090 950 225 Balance 828 -[phone] Meds/Results Medications: Active Medications Generic Name Dose Route Start Last Admin Trade Name Freq PRN Reason Stop Dose Admin Colchicine 0.6 mg 08/11/22 09:15 08/11/22 09:17 Colchicine 0.6 Mg Tablet PO 0.6 mg Q1
[2022-08-12] VITALS (8 sets, daily range): BP systolic 110–132; BP diastolic 77–92; PULSE 69–82; RESP 16–24; TEMP 36.6–36.9; O2SAT 9–98
[2022-08-12 04:41] LABS: Hematocrit 29.2 % (37.0-47.0); Hemoglobin 9.4 g/dL (12.0-15.0); Mean Corpuscular HGB Conc 32.2 g/dl (32-36); Mean Corpuscular Hemoglobin 26.3 pg (26-34); Mean Corpuscular Volume 81.8 fl (80-100); Mean Platelet Volume 8.8 fl (7.4-10.4); Platelet Count Result 417 k/mm3 (150-375); Red Blood Count 3.57 M/mm3 (4.2-5.4); Red Cell Distribution Width 15.4 % (11.5-14.5); White Blood Count 4.7 K/mm3 (4.5-10.0)
[2022-08-12 05:05] LABS: Alanine Aminotransferase 38 U/L (6-35); Albumin Level 2.8 g/dL (3.5-5.1); Alkaline Phosphatase 57 U/L (38-126); Anion Gap 4 mmol/L (8-16); Aspartate Amino Transferase 41 U/L (14-36); Bilirubin,Total 0.4 mg/dL (0.2-1.3); Blood Urea Nitrogen 12 mg/dL (7-17); Calcium 7.9 mg/dL (8.4-10.2); Carbon Dioxide 29 mmol/L (22-30); Chloride 105 mmol/L (98-107); Estimated CRCL calculation 92 ml/min; Estimated Glomerular Filt Rate > 60; Glucose 96 mg/dL (65-110); Magnesium 2.2 mg/dL (1.6-2.3); Phosphorus 4.1 mg/dL (2.5-4.5); Potassium 3.8 mmol/L (3.4-5.0); Sodium 138 mmol/L (137-145)
[2022-08-12] MEDS: SOTALOL HCL 40 MG TABLET PO (08:22)
[2022-08-12] MEDS: COLCHICINE 0.6 MG TABLET PO (08:22)
[2022-08-12] MEDS: IBUPROFEN 400 MG TABLET PO ×2 (08:22→13:06)
--- NOTE | 2022-08-12 13:52 | PM.PNCARD ---
Progress Note: A&P Assessment and Plan (1) Pericardial effusion: Code(s): I31.39 - Other pericardial effusion (noninflammatory) Status: Acute (2) Mediastinal mass: Code(s): J98.59 - Other diseases of mediastinum, not elsewhere classified Status: Acute Plan 62-year-old lady without previous cardiac history presents with several months of feeling ill, she has had enlarging pleural and pericardial effusions. The pericardial fluid analysis does not show any apparent malignant cells. The pericardial drain was removed 08/11. She is now being treated with anti-inflammatory medication and colchicine. She did have brief atrial fibrillation when pericardial drain was in place, likely due to irritation from catheter. Was started on Sotalol, however, no further evidence of AFIB and I suspect she will not have further issues with AFIB since drain is no longer in place. Will discontinue Sotalol. Recommend limited echocardiogram in 1 week to re-evaluate pericardium. We will arrange outpatient follow up in our clinic. Subjective Date/time seen: 08/12/22 13:52 Interval history: Reason for visit: Pericardial effusion s/p pericardiocentesis Large circumferential pericardial effusion with borderline evidence of tamponade/hemodynamic compromise on presentation last week.? The effusion was drained percutaneously in the cardiac catheterization lab. Pericardial drain removed yesterday. Feeling well this morning. No shortness of breath. Telemetry with sinus rhythm. Review of Systems Review of Systems: 12 point ROS obtained. Negative, unless stated in HPI. Exam Const: General: comfortable and no acute distress Other: Pleasant white female appearing her stated age no distress of any kind HENMT: Mouth: Yes moist mucous membranes Eyes: Sclera: sclerae normal Neck: Neck: supple and no JVD Resp: Effort & Inspection: normal respiratory effort Auscultation: clear to auscultation bilaterally Cardio: Rate: regular rate Rhythm: regular rhythm Other: No murmur no audible rub GI: GI Palp: Yes Soft to palpation Auscultation: normal bowel sounds Skin: General skin exam: normal color Neuro: Other: Alert and oriented x3 Extrem: General: normal to inspection Other: Normal perfusion, no edema Psych: Mental Status: mental status grossly normal Affect: normal affect Objective Data Vital Signs Vital Signs: Vital Signs - 24 hr 08/11/22 14:00 08/11/22 16:00 08/11/22 16:00 Temperature Pulse Rate 81 71 Respiratory Rate Blood Pressure Pulse Oximetry 98 Oxygen Delivery Room Air 08/11/22 16:00 08/11/22 18:00 08/11/22 20:00 Temperature 36.4 C 36.9 C Pulse Rate 82 81 77 Respiratory Rate 18 22 H Blood Pressure 116/79 125/75 Pulse Oximetry 98 98 Oxygen Delivery 08/11/22 20:00 08/11/22 20:00 08/11/22 21:12 Temperature Pulse Rate 74 77 74 Respiratory Rate 22 H Blood Pressure Pulse Oximetry 98 Oxygen Delivery Room Air 08/11/22 22:00 08/11/22 23:57 08/12/22 00:00 Temperature 36.7 C Pulse Rate 66 66 69 Respiratory Rate 22 H 16 Blood Pressure 110/77 Pulse Oximetry 98 97 Oxygen Delivery Room Air 08/12/22 00:00 08/12/22 02:00 08/12/22 04:00 Temperature Pulse Rate 69 70 70 Respiratory Rate 16 Blood Pressure Pulse Oximetry 97 Oxygen Delivery Room Air 08/12/22 04:00 08/12/22 04:00 08/12/22 06:00 Temperature 36.9 C Pulse Rate 70 72 74 Respiratory Rate 20 Blood Pressure 132/81 Pulse Oximetry 97 Oxygen Delivery 08/12/22 08:22 08/12/22 08:00 08/12/22 08:00 Temperature Pulse Rate 82 76 76 Respiratory Rate 24 H Blood Pressure Pulse Oximetry 97 Oxygen Delivery Room Air 08/12/22 08:00 08/12/22 10:00 08/12/22 12:00 Temperature 36.6 C Pulse Rate 76 75 75 Respiratory Rate 24 H Blood Pressure 127/92 H Pulse Oximetry 9 L Oxygen Delivery 08/12/22 12:00 08/12/22 12:00 Temperature
--- NOTE | 2022-08-12 14:28 | PM.DS ---
DS: Admitting Diagnosis Discharge Date 08/12/2022 Admitting Diagnosis Syncope DS: Discharge Diagnosis Discharge Diagnosis (1) Pericardial effusion: Code(s): I31.39 - Other pericardial effusion (noninflammatory) Status: Acute Assessment and Plan: Cardiology consult appreciated, pericardial drain in place status post pericardiocentesis Echo from 08/09 showed persistent moderate pericardial effusion Echo from 08/11 showed small pericardial effusion, pericardial drain pulled by Cardiology, monitor Anticipate discharge soon, continue colchicine and ibuprofen (2) Mediastinal mass: Code(s): J98.59 - Other diseases of mediastinum, not elsewhere classified Status: Acute Assessment and Plan: Appreciate hematology/oncology consultation, mediastinal mass concerning for lymphoma versus thymoma, no reactive lymphadenopathy noted Pericardial fluid cytology showed no evidence of malignancy CT abdomen pelvis performed showing persistent pericardial effusion with associated hepatic congestion, stable bilateral pleural effusions with associated atelectasis, no lymphadenopathy noted Suspected mass will need to be biopsied? (3) Anemia: Code(s): D64.9 - Anemia, unspecified Status: Acute Assessment and Plan: Appreciate hematology consultation, appears to have iron deficiency anemia, management per Hematology (4) Elevated LFTs: Code(s): R79.89 - Other specified abnormal findings of blood chemistry Status: Acute Assessment and Plan: Continue to improve, hepatitis panel negative Plan DVT prophylaxis: SCDs Stress ulcer prophylaxis: not applicable Nutrition: heart healthy diet Code Status: full code DS: Summary Hospital Course Hospital Course: 62-year-old female presenting with a syncopal episode with a past medical history only of hypertension. She was found to have a pericardial effusion concerning for tamponade. She went the tap lab and underwent successful pericardiocentesis with placement of pericardial drain catheter. 400 cc was initially removed. Cytology from the fluid was negative for infection or malignancy. However, due to mediastinal mass in addition to effusion the pericardium as well as the pleural cavity, oncology was consulted. CT abdomen and pelvis was ordered to look for lymphadenopathy and this was not found. Patient was found to have elevated LFTs likely thought to be passive hepatic congestion from the patient's pericardial effusion. Patient also underwent thoracentesis for her pleural effusion. The cytology did not yield anything of significance either. Ultimately the drain was removed and the patient remained stable. She was discharged in good condition with outpatient follow-up by Cardiology and Oncology. Time Spent with Patient Time attestation: Total time spent providing and/or coordinating discharge services: Exam Narrative: General: No acute distress, alert and oriented per baseline HEENT: Atraumatic, normocephalic, mucous membranes moist CV: Regular rate and rhythm, S1-S2, no murmurs Lungs: Unlabored breathing, no audible wheeze Abdomen: Soft, nondistended Extremities: Normal to inspection Skin: No rashes noted, no lesions or wounds seen Psych: Euthymic, normal affect DS: Data Data Completed and Pending Completed studies during hospitalization: Pending at discharge 08/07/22 11:42 Cytology [PTH] Routine 08/09/22 10:07 Cytology [PTH] Routine Labs on day of discharge: Labs from last 24 hours 08/12/22 08/12/22 04:29 04:29 WBC 4.7 RBC 3.57 L Hgb 9.4 L Hct 29.2 L MCV 81.8 MCH 26.3 MCHC 32.2 RDW 15.4 H Plt Count 417 H MPV 8.8 Sodium 138 Potassium 3.8 Chloride 105 Carbon Dioxide 29 Anion Gap 4 L BUN 12 Creatinine 0.50 L Estim Creat Clear Calc 92 Estimated GFR > 60 Glucose 96 Calcium 7.9 L Phosphorus 4.1 Magnesium 2.2 Total Alok
[2022-08-12 21:16] LABS: Glucose Pleural Fluid 96 mg/dL; LDH Pleural Fluid 127 U/L; Total Protein Pleural Fluid 3.8 g/dL
[2022-08-13 10:17] LABS: Haptoglobin 371 mg/dL (43-212)
[2022-09-02 16:43] LABS: Acetylchol Receptor Binding Ab 0.43 nmol/L
== END 2022-08-12 15:00 | disposition home or self-care (01) | DRG 314 ==
LOC: ANHED 10:47 → ANHICU 08-08 11:11 → ANHED 08-13 13:59 → ANHSURGERY 08-13 13:59 → ANHICU 08-13 13:59
PROVIDERS: Internal Medicine; Internal Medicine Cardiovascular Disease; Internal Medicine Gastroenterology; Physician Assistant; Admitting Provider Chiropractor; Emergency Provider Emergency Medicine; PCP Physician Assistant; Visit Provider Student in an Organized Health Care Education/Training Program
PROC: 0W9D30Z Drainage of Pericardial Cavity with Drainage Device, Percutaneous Approach (ICD-10-PCS; CPT 33016; principal; 2022-08-07 11:45)
DX: I31.39 Other pericardial effusion (noninflammatory) (principal); I50.31 Acute diastolic (congestive) heart failure; J98.59 Other diseases of mediastinum, not elsewhere classified; J90 Pleural effusion, not elsewhere classified; J81.1 Chronic pulmonary edema; I31.4 Cardiac tamponade; I48.0 Paroxysmal atrial fibrillation; I11.0 Hypertensive heart disease with heart failure; D63.8 Anemia in other chronic diseases classified elsewhere; K76.1 Chronic passive congestion of liver; R73.9 Hyperglycemia, unspecified; Z20.822 Contact with and (suspected) exposure to COVID-19
CPT/HCPCS: 32555; 33016; 36415; 36600; 71045; 71275; 74177; 76705; 80048; 80053; 80074; 81001; 82274; 82607; 82728; 82746; 82805; 82945; 83010; 83540; 83550; 83615; 83735; 83880; 84100; 84155; 84157; 84238; 84443; 84484; 84550; 85025; 85027; 85380; 85610; 85652; 85730; 86140; 86225; 86430; 87040; 87070; 87075; 87102; 87205; 87206; 87637; 88108; 88184; 88305; 88312; 89051; 93005; 93306; 93308; 96372; 99285; A9270; C1894; J1650; J1756; J1940; J2250; J3010; J7030; J7040; J7050; Q9967

== ENCOUNTER 2022-08-19 09:58 | Outpatient (CLI) | payer OTHER, SELFPAY ==
[2022-08-19 10:27] LABS: Basophils Percent Auto 0.4 % (0.2-1.2); Eosinophils Absolute Auto 0.1 K/mm3 (0-0.3); Eosinophils Percent Auto 1.8 % (0-4.4); Hematocrit 32.4 % (37.0-47.0); Hemoglobin 10.1 g/dL (12.0-15.0); Immature Granulocyte Absolute 0.02 K/mm3 (0.00-0.031); Immature Granulocyte Percent A 0.4 % (0-0.5); Lymphocytes Absolute Auto 1.65 K/mm3 (0.9-3.2); Lymphocytes Percent Auto 29.5 % (18.3-44.2); Mean Corpuscular HGB Conc 31.2 g/dl (32-36); Mean Corpuscular Hemoglobin 25.8 pg (26-34); Mean Corpuscular Volume 82.9 fl (80-100); Mean Platelet Volume 9.1 fl (7.4-10.4); Monocytes Absolute Auto 0.4 K/mm3 (0.1-0.6); Monocytes Percent Auto 6.8 % (2.6-8.5); Neutrophils Absolute Auto 3.4 K/mm3 (1.3-6.7); Neutrophils Percent Auto 61.1 % (45.5-73.1); Platelet Count Result 465 k/mm3 (150-375); Red Blood Count 3.91 M/mm3 (4.2-5.4); Red Cell Distribution Width 17.5 % (11.5-14.5); White Blood Count 5.6 K/mm3 (4.5-10.0)
[2022-08-19 10:54] LABS: Vitamin D 25 Hydroxy 20.7 ng/mL
[2022-08-19 11:46] LABS: Erythrocyte Sedimentation Rate 64 mm/hr (0-20)
[2022-08-21 13:07] LABS: SS-A <1.0; SS-B <1.0
[2022-08-21 21:19] LABS: Anti Cyclic Citrullinated Pept <16 Units (<20)
[2022-08-22 14:14] LABS: Anti Nuclear Antibody Titer >=1:1280 (Negative)
== END 2022-08-19 09:59 | disposition home or self-care (01) ==
PROVIDERS: PCP Family Medicine; Visit Provider Family Medicine
DX: E55.9 Vitamin D deficiency, unspecified (principal); D64.9 Anemia, unspecified; R70.0 Elevated erythrocyte sedimentation rate; I31.39 Other pericardial effusion (noninflammatory)
CPT/HCPCS: 36415; 82306; 85025; 85652; 86038; 86039; 86200; 86235

== ENCOUNTER 2022-08-27 08:31 | Outpatient (CLI) | payer OTHER, SELFPAY ==
--- NOTE | 2022-08-27 08:00 | ECHO_ITS ---
Patient Info Name: Lakeisha Ruiz Age: 62 years : 1960 Gender: Female Ht: 66 in Wt: 166 lbs BSA: 1.89 m2 HR: 77 bpm BP: 138 / 95 mmHg Heart Rhythm: Sinus Rhythm Exam Date: 08/27/2022 9:09 AM Exam Location: [facility] Patient Status: Outpatient Admit Date: 08/27/2022 Staff Ordering Physician: Mary Jo Barajas Sales [employer] Marketing Professional: Paco Her RDCS, RT Attending Provider: Brian Ruiz MD Referring Physician: Karl CAMPOS; Exam Type: CA echo doppler color flow Study Info Indications I31.3 - Pericardial effusion (noninflammatory) Complete two-dimensional, color flow and Doppler transthoracic echocardiogram is performed. Strain analysis performed. Summary 1. Complete two-dimensional, color flow and Doppler transthoracic echocardiogram is performed. 2. Left ventricular chamber dimension is normal. 3. Left ventricular systolic function is normal, estimated at 60-65%. 4. Right ventricular systolic function is normal. 5. There is mild mitral valve regurgitation. 6. There is mild tricuspid valve regurgitation. 7. There is small circumferential pericardial effusion. No echocardiographic evidence of tamponade. Left Ventricle Left ventricular chamber dimension is normal. Left ventricular systolic function is normal, estimated at 60-65%. There is no increased left ventricular wall thickness. Global longitudinal strain is normal at -19 %. Right Ventricle Right ventricular chamber dimension is normal. Right ventricular systolic function is normal. Left Atria Left atrial chamber dimension is normal. Right Atria Right atrial chamber dimension is normal. Atrial Septum Intact interatrial septum visualized by color flow imaging. Aortic Valve The aortic valve is trileaflet. There is no aortic valve stenosis. There is no aortic valve regurgitation. Pulmonic Valve The pulmonic valve is not well visualized. Mitral Valve The mitral valve has normal leaflets. There is mild mitral valve regurgitation. Tricuspid Valve There is mild tricuspid valve regurgitation. Pericardium/Pleural There is small circumferential pericardial effusion. No echocardiographic evidence of tamponade. Inferior Vena Cava Normal inferior vena cava with <50% collapse upon inspiration consistent with elevated right atrial pressure, 8 mmHg. Aorta The aortic root size at the sinus of Valsalva is normal. Left Ventricular Outflow Tract Name Value Normal LVOT 2D LVOT Diameter 2.0 cm LVOT Doppler LVOT Peak Gradient 6 mmHg LVOT Mean Gradient 3 mmHg LVOT VTI 26 cm LVOT VTI/AV VTI Ratio 0.8 LVOT Stroke Volume 85 ml LVOT CO 6.8 l/min LVOT CI 3.6 l/min/m2 Tricuspid Valve Name Value Normal TV Regurgitation Doppl
== END 2022-08-27 08:32 | disposition home or self-care (01) ==
PROVIDERS: PCP Family Medicine; Visit Provider Family Medicine
DX: I31.39 Other pericardial effusion (noninflammatory) (principal); I08.1 Rheumatic disorders of both mitral and tricuspid valves
CPT/HCPCS: 93306

== ENCOUNTER 2022-09-22 10:40 | Outpatient (CLI) | payer OTHER, SELFPAY ==
[2022-09-11 13:15] VITALS: BMI 26.9
--- NOTE | 2022-09-11 13:15 | PC.NURSE ---
Pre Radiology instructions Report to the RADIOLOGY/IMAGING ENTRANCE AT 1030 on date 09/22/22. Procedure Time: 1100. YOU MAY BE MONITORED AT HOSPITAL FOR UP TO 4 HOURS AFTER YOUR PROCEDURE. 1-2 visitors will be allowed to accompany the patient into the hospital. ?The visitor will be instructed to remain with patient at all times or MAY BE ASKED TO leave the building due to restrictions.? We will allow the visitor to come back to the postoperative area when patient is ready.? NO children visitors allowed at this time. You and your visitor will be asked to self-screen and do not enter if you have any COVID symptoms. A mask is OPTIONAL within the hospital. Patients are to have no food or drink 6 hours prior to procedure time Driving will be restricted after the procedure, you must have a person to drive you home. Labs will be drawn in preop area and once reviewed, you will be taken to radiology area for procedure. When the procedure is completed, you will be taken to outpatient where you will be monitored for several hours. You may have one visitor in this area. Other than holding anti-coagulants, patient may take other medication(s) as scheduled. Prior to your appointment date patients are instructed to hold anti-coagulants after discussing with ordering provider to stop. If unable to discontinue anti-coagulants please notify radiologist. ? No aspirin or warfarin (Coumadin) for 7 days prior to the procedure. ? No clopidogrel (Plavix), ticagrelor (Brilinta), prasugrel (Effient) or dabigatran (Pradaxa) for 5 days prior to the procedure. ? No rivaroxaban (Xarelto), apixaban (Eliquis), dipyridamole (Aggrenox or Persantine) or cilostazol (Pletal) for 2 days prior to the procedure. Medications to discontinue per physician: N/A Date to take last dose: N/A Please leave all valuables, including medications, at home the day of procedure. The hospital will not accept responsibility for valuables. Wear comfortable, loose fitting clothing.? Follow any additional instructions given to you from ordering provider. Telephone instructions given to THOMAS WRIGHT and asked if any additional questions and then verbalized understanding. Patient advised to call scheduling provider office or registration scheduling [phone] if any additional questions.
[2022-09-22] VITALS (10 sets, daily range): BP systolic 132–150; BP diastolic 71–87; PULSE 81–100; RESP 14–18; O2SAT 97–100
--- NOTE | ~2022-09-22 | CT_ITS ---
EXAMINATION: CT biopsy lung w/imaging DATE: 09/22/2022 12:08 INDICATION: Anterior mediastinal mass. TECHNIQUE: The procedure including the risks, benefits, and alternatives was discussed with the patie nt. Risks discussed included bleeding and infection. The patient verbalized understanding of the risk s and agreed to proceed. The skin overlying the sternum was prepped and draped in usual sterile fash ion. Anesthetic was administered with 1% lidocaine subcutaneously. A 19 gauge outer needle was adva nced under CT guidance to the mass. A 20 gauge core biopsy needle was then used to obtain 3 core biop sy specimens. The mA was adjusted according to patient size. Iterative reconstruction technique was e mployed. The dose-length product was 162.34 mGy-cm. The needle was removed and the entry site was rose marie aned and dressed. There were no immediate complications. FINDINGS: CT images demonstrate the outer needle tip adjacent to a 3.9 x 2.4 cm mass in the anterior mediastinum. IMPRESSION: 1. CT-guided core needle biopsy of an anterior mediastinal mass. Reviewed, dictated and finalized at location A.
== END 2022-09-22 15:11 | disposition home or self-care (01) ==
PROVIDERS: PCP Family Medicine; Visit Provider Radiology Diagnostic Radiology
PROC: BB24ZZZ Computerized Tomography (CT Scan) of Bilateral Lungs (ICD-10-PCS; CPT 32408; principal; 2022-09-22 11:00)
DX: J98.59 Other diseases of mediastinum, not elsewhere classified (principal)
CPT/HCPCS: 32408; 88305; 88342

== ENCOUNTER 2023-01-24 08:35 | Outpatient (CLI) | payer OTHER, SELFPAY ==
[2023-01-24 09:27] LABS: Basophils Absolute Auto 0.1 K/mm3 (0.0-0.1); Basophils Percent Auto 0.7 % (0.2-1.2); Eosinophils Absolute Auto 0.1 K/mm3 (0-0.3); Eosinophils Percent Auto 0.7 % (0-4.4); Hematocrit 39.6 % (37.0-47.0); Hemoglobin 12.4 g/dL (12.0-15.0); Immature Granulocyte Absolute 0.07 K/mm3 (0.00-0.031); Immature Granulocyte Percent A 0.7 % (0-0.5); Lymphocytes Absolute Auto 3.15 K/mm3 (0.9-3.2); Lymphocytes Percent Auto 29.9 % (18.3-44.2); Mean Corpuscular HGB Conc 31.3 g/dl (32-36); Mean Corpuscular Volume 95.9 fl (80-100); Mean Platelet Volume 9.2 fl (7.4-10.4); Monocytes Absolute Auto 0.8 K/mm3 (0.1-0.6); Neutrophils Absolute Auto 6.3 K/mm3 (1.3-6.7); Platelet Count Result 294 k/mm3 (150-375); Red Blood Count 4.13 M/mm3 (4.2-5.4); Red Cell Distribution Width 14.1 % (11.5-14.5); White Blood Count 10.5 K/mm3 (4.5-10.0)
[2023-01-24 09:36] LABS: Alanine Aminotransferase 22 U/L (6-35); Albumin Level 3.7 g/dL (3.5-5.1); Alkaline Phosphatase 43 U/L (38-126); Anion Gap 1 mmol/L (8-16); Aspartate Amino Transferase 24 U/L (14-36); Bilirubin,Total 0.7 mg/dL (0.2-1.3); Blood Urea Nitrogen 23 mg/dL (7-17); Calcium 8.9 mg/dL (8.4-10.2); Carbon Dioxide 33 mmol/L (22-30); Chloride 101 mmol/L (98-107); Estimated Glomerular Filt Rate > 60; Glucose 73 mg/dL (65-110); Magnesium 2.1 mg/dL (1.6-2.3); Potassium 3.8 mmol/L (3.4-5.0); Sodium 135 mmol/L (137-145)
[2023-01-24 09:56] LABS: Erythrocyte Sedimentation Rate 15 mm/hr (0-20)
[2023-01-24 10:24] LABS: Vitamin D 25 Hydroxy 19.3 ng/mL
[2023-01-24 14:38] LABS: Iron 134 ug/dL (37-170)
[2023-01-24 14:47] LABS: Percent Iron Saturation 44 % (20-50)
== END 2023-01-24 08:36 | disposition home or self-care (01) ==
LOC: ANHLAB 08:37
PROVIDERS: PCP Family Medicine; Visit Provider Family Medicine
DX: D64.9 Anemia, unspecified (principal); E11.9 Type 2 diabetes mellitus without complications; E55.9 Vitamin D deficiency, unspecified; M32.9 Systemic lupus erythematosus, unspecified
CPT/HCPCS: 36415; 80053; 82306; 82728; 83540; 83550; 83735; 85025; 85652

== ENCOUNTER 2023-04-25 09:08 | Outpatient (CLI) | payer OTHER, SELFPAY ==
[2023-04-25 10:13] LABS: Basophils Percent Auto 0.5 % (0.2-1.2); Eosinophils Absolute Auto 0.1 K/mm3 (0-0.3); Hemoglobin 12.2 g/dL (12.0-15.0); Immature Granulocyte Absolute 0.02 K/mm3 (0.00-0.031); Immature Granulocyte Percent A 0.3 % (0-0.5); Lymphocytes Percent Auto 33.6 % (18.3-44.2); Mean Corpuscular HGB Conc 32.1 g/dl (32-36); Mean Corpuscular Hemoglobin 30.2 pg (26-34); Mean Corpuscular Volume 94.1 fl (80-100); Mean Platelet Volume 9.2 fl (7.4-10.4); Monocytes Absolute Auto 0.6 K/mm3 (0.1-0.6); Monocytes Percent Auto 9.7 % (2.6-8.5); Neutrophils Absolute Auto 3.3 K/mm3 (1.3-6.7); Neutrophils Percent Auto 54.9 % (45.5-73.1); Platelet Count Result 257 k/mm3 (150-375); Red Blood Count 4.04 M/mm3 (4.2-5.4)
[2023-04-25 10:31] LABS: Alanine Aminotransferase 19 U/L (6-35); Alkaline Phosphatase 52 U/L (38-126); Anion Gap 2 mmol/L (8-16); Aspartate Amino Transferase 22 U/L (14-36); Bilirubin,Total 0.7 mg/dL (0.2-1.3); Blood Urea Nitrogen 19 mg/dL (7-17); Calcium 9.2 mg/dL (8.4-10.2); Carbon Dioxide 34 mmol/L (22-30); Chloride 103 mmol/L (98-107); Estimated Glomerular Filt Rate > 60; Glucose 94 mg/dL (65-110); Potassium 3.6 mmol/L (3.4-5.0); Sodium 139 mmol/L (137-145)
[2023-04-25 10:40] LABS: Complement C3 101 mg/dL (88-165)
[2023-04-25 11:01] LABS: Appearance Urine Clear (Clear); Bacteria Urine None Seen /hpf; Bilirubin Urine Negative (Negative); Blood Urine Trace (Negative); Color Urine Yellow (Yellow); Glucose Urine UA Negative (Negative); Ketones Urine Negative (Negative); Leukocyte Esterase Ur Negative LEU/UL (Negative); Nitrate Urine Negative (Negative); Non Pathogenic Casts 0-2; Protein Urine Negative (Negative); RBC Urine 0-2 /hpf (0-2); Specific Grav Ur 1.014 (1.001-1.035); Squamous Epithelial Cell Urine None seen /hpf (Few); Urobilinogen Urine 0.2 mg/dL (<2.0); WBC Urine 0-5 /hpf
[2023-04-25 11:07] LABS: Erythrocyte Sedimentation Rate 20 mm/hr (0-20)
[2023-04-25 11:22] LABS: Add Urine Microscopic? YES
[2023-04-28 14:45] LABS: Albumin 3.7 g/dL (3.8-4.8); Alpha 1 Globulin 0.3 g/dL (0.2-0.3); Alpha 2 Globulin 0.8 g/dL (0.5-0.9); Beta 1 Globulin 0.4 g/dL (0.4-0.6); Gamma Globulin 0.9 g/dL (0.8-1.7); Protein, Total 6.3 g/dL (6.1-8.1)
[2023-04-30 10:48] LABS: Anti Cardio Antibody IgM <2.0 MPL-U/mL (<20.0); Anti Cardiolipin Antibody IgA <2.0 APL-U/mL (<20.0); Anti Cardiolipin Antibody IgG 8.7 GPL-U/mL (<20.0)
[2023-04-30 19:05] LABS: Lupus dRVVT Screen 40 sec (<=45); PTT-LA Screen 33 sec (<=40)
[2023-05-07 21:11] LABS: TPMT Activity 6
== END 2023-04-25 09:09 | disposition home or self-care (01) ==
LOC: ANHLAB 09:11
PROVIDERS: PCP Family Medicine; Visit Provider Internal Medicine
DX: M32.19 Other organ or system involvement in systemic lupus erythematosus (principal); I31.39 Other pericardial effusion (noninflammatory); Z79.52 Long term (current) use of systemic steroids
CPT/HCPCS: 36415; 80053; 81001; 82657; 84155; 84165; 85025; 85613; 85652; 85730; 86140; 86147; 86160; 86225

== ENCOUNTER 2023-08-08 11:45 | Outpatient (CLI) | payer OTHER, SELFPAY ==
[2023-08-08 12:00] LABS: Basophils Percent Auto 0.3 % (0.2-1.2); Eosinophils Absolute Auto 0.1 K/mm3 (0-0.3); Eosinophils Percent Auto 0.8 % (0-4.4); Hematocrit 37.5 % (37.0-47.0); Hemoglobin 11.9 g/dL (12.0-15.0); Immature Granulocyte Absolute 0.04 K/mm3 (0.00-0.031); Immature Granulocyte Percent A 0.5 % (0-0.5); Lymphocytes Absolute Auto 1.17 K/mm3 (0.9-3.2); Lymphocytes Percent Auto 13.3 % (18.3-44.2); Mean Corpuscular HGB Conc 31.7 g/dl (32-36); Mean Corpuscular Hemoglobin 29.8 pg (26-34); Mean Platelet Volume 9.1 fl (7.4-10.4); Monocytes Absolute Auto 0.6 K/mm3 (0.1-0.6); Neutrophils Absolute Auto 6.9 K/mm3 (1.3-6.7); Neutrophils Percent Auto 78.1 % (45.5-73.1); Platelet Count Result 234 k/mm3 (150-375); Red Blood Count 3.99 M/mm3 (4.2-5.4); Red Cell Distribution Width 12.6 % (11.5-14.5); White Blood Count 8.8 K/mm3 (4.5-10.0)
[2023-08-08 12:29] LABS: Vitamin D 25 Hydroxy 31.5 ng/mL
[2023-08-08 13:18] LABS: Iron 70 ug/dL (37-170); Percent Iron Saturation 26 % (20-50)
== END 2023-08-08 11:46 | disposition home or self-care (01) ==
LOC: ANHLAB 11:46
PROVIDERS: PCP Family Medicine; Visit Provider Family Medicine
DX: D64.9 Anemia, unspecified (principal); E55.9 Vitamin D deficiency, unspecified
CPT/HCPCS: 36415; 82306; 82728; 83540; 83550; 85025

== ENCOUNTER 2024-03-28 08:12 | Outpatient (CLI) | payer OTHER, SELFPAY ==
--- NOTE | ~2024-03-28 | MM_ITS ---
EXAMINATION: MM screening olive BI w john HISTORY: Screening TECHNIQUE: Craniocaudal and mediolateral oblique 3-D tomosynthesis images were obtained and synthetic 2-D images were generated. CAD analysis was submitted and interpreted. COMPARISON: Comparison to multiple prior studies sequentially, with oldest reviewed study dated 10/2016. BREAST PARENCHYMAL COMPOSITION: Not dense: There are scattered areas of fibroglandular density. FINDINGS: There is no evidence of suspicious mass, calcification, or architectural distortion to sugg est malignancy in either breast. There has been no suspicious interval change. IMPRESSION: 1. No mammographic evidence of malignancy. 2. Recommend routine screening mammography in one year. BI-RADS Category 1: Negative Reviewed, dictated and finalized at location B.
== END 2024-03-28 08:13 | disposition home or self-care (01) ==
LOC: ANHIMG 08:15
PROVIDERS: PCP Family Medicine; Visit Provider Family Medicine
DX: Z12.31 Encounter for screening mammogram for malignant neoplasm of breast (principal)
CPT/HCPCS: 77063; 77067

== ENCOUNTER 2024-11-23 07:38 | Outpatient (CLI) | payer OTHER, SELFPAY ==
--- NOTE | ~2024-11-23 | DEXA_ITS ---
Bone Density Report Name: LEO WRIGHT Age: 64 Sex: Female Ethnicity: White Date of : 1960 Indication: postmenopausal; screening for osteoporosis; parental hip fracture; history of glucocorticoids; Referring Provider: VALERIO FRANCOIS Study: Bone densitometry was performed. Exam Date: November 23, 2024 Accession number: [id number] Bone Density: Region BMD T-score Z-score Classification AP Spine(L1-L4) 0.804 -2.2 -0.5 Osteopenia Femoral Neck (Left) 0.602 -2.2 -0.8 Osteopenia Total Hip (Left) 0.738 -1.7 -0.5 Osteopenia Femoral Neck (Right) 0.586 -2.4 -0.9 Osteopenia Total Hip (Right) 0.690 -2.1 -0.9 Osteopenia Total Hip Mean 0.714 -1.9 -0.7 Osteopenia World Health Organization criteria for BMD impression classify patients as: Normal (T-score at or above -1.0), Osteopenia (T-score between -1.0 and -2.5), or Osteoporosis (T-score at or below -2.5). 10-year Fracture Risk(1): Major Osteoporotic Fracture 31% Hip Fracture 3.6% Reported Risk Factors: [place] (), Neck BMD=0.586, BMI=34.2, parental fracture, glucocorticoids (1) FRAX(R) Version 3.08. Fracture probability calculated for an untreated patient. Fracture probability may be lower if the patient has received treatment. Clinical Information Provided by Patient: Parent has had a hip fracture Has taken Glucocorticoids Has used the following medications: Vitamin D Patient maximum height was 67 Menopause Age: 52 No regular weight bearing exercise Drinks caffeinated beverages Onset of menses at age 12 Number of children 2 Impression: The patient has low bone mass, based on the Right Femoral Neck T-score. The patient has an estimated ten-year risk of hip fracture of 3.6% and an estimated ten-year risk of major fracture of 31%, based on the WHO FRAX algorithm. The patient has risk factors, including: parental hip fracture, history of glucocorticoid therapy. Discussion: BONE DENSITY IS LOW AT ONE OR MORE SKELETAL SITES. THE PATIENT'S BMD AND CLINICAL RISK FACTORS CONTRIBUTE TO THIS PATIENT'S HIGH RISK OF FRACTURE. This patient's lowest T-score is low at one or more skeletal sites. It meets the World Health Organization's (WHO) criteria for ?low bone mass? (T-score between -1.0 and -2.5). The patient's 10-year risk of hip fracture and 10 year risk of a major osteoporotic fracture as calculated by FRAX exceeds the threshold where pharmacological therapy is recommended by the National Osteoporosis Foundation (NOF). However, all treatment decisions require clinical judgment and consideration of individual patient factors, including patient preferences, comorbidities, previous drug use, risk factors not captured in the FRAX model (e.g., frailty, falls, vitamin D deficiency, increased bone turnover, interval significant decline in bone density) and possible under or overestimation of fracture risk by FRAX. The patient should follow a healthful lifestyle (good nutrition with adequate calcium and vitamin D, and appropriate weight-bearing exercise). Follow-Up: Consider a repeat BMD and Vertebral Fracture Assessment (VFA) exam in 2 years or sooner if medically necessary, to reassess this patient's status. Reported by: LUPE on 11/23/2024 8:11:00 AM. Reviewed, dictated and finalized at location A.
--- OUTSIDE RECORDS SUMMARY | 2024-11-23 07:41 | XMS_ITS | Clinical Summary ---
Author Organization [facility] [address] Address [address] [place] [address] Care Team Providers Care Auto Service Dispatcher Name Role Phone Maya Ricketts MD Primary Care Provider [phone] Maxwell Chang MD, Cheng Newman. 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 90 tablet 3 5 Active Active Problems Patient Care Coordination No te Formatting of this note is d ifferent from the original. Aaliyah Hopper NP 10/14/2022 13:00 This is a 62-year-old female patient presenting to the clinic today in referral for thymus cancer. Patient was referred to this clinic by Dr. Maya Ricketts. Patient has a medical history significant for hypertension, pericardial effusion, mediastinal mass, iron deficiency anemia, syncope, systemic lupus erythematous, pleural effusion, and seasonal allergies. Patient has never been a smoker. She initially underwent a CT of the chest on 08/07/2022 at [facility] with the following findings: Large pericardial effusion without discrete pericardial lesion. Flattening of the right ventricular free wall. Normal course andcaliber of the thoracic aorta. Normal thoracic esophagus.Moderate bilateral pleural effusions. Associated bibasilar atelectasis. No filling defects in the pulmonary arteries. Probable 1.7 cm sebaceous cyst in the subcutaneous fat of the upper right back.Multiple prominent bilateral axillary and supraclavicular lymph nodes. For reference, a left supraclavicular lymph node measures 1.3 cm in short axis (series 3, image 33). Anterior mediastinal mass measures 3.0 x 2.1 cm. Enlarged left internal mammary lymph node measuring 8 mm in short axis (series 3, image 99. 1.2 cm cyst in the left lateral section of the liver. Otherwise,unremarkable imaged portions of the upper abdomen. Mild interstitial pulmonary edema, most apparent in the lung bases. No consolidation or pneumothorax. Bone island in the left clavicular head. No suspicious osseous lesions. IMPRESSION: 1. Large pericardial effusion with cardiac morphology suggesting tamponade physiology. Reportedly, the patient has undergone pericardiocentesis. The etiology of this pericardial effusion is Unclear. 2. Anterior mediastinal mass measuring up to 3 cm in diameter. Per report, this represents a thymic neoplasm. Enlarged left supraclavicular and left internal mammary lymph nodes are indeterminate. Prominent bilateral axillary lymph nodes are favored to be reactive. No definite evidence of pleural metastatic disease, though evaluation is limited in the early phase of contrast on this PE-protocol CT. 3. No pulmonary embolism. 4. Moderate bilateral pleural effusions with bibasilar atelectasis. Mild interstitial pulmonary edema. Patient underwent a CT biopsy of anterior mediastinal mass on 09/22/2022. At present, pathology results are pending. Aaliyah Hopper NP 12/10/2022 09:22 AM This is a 62-year-old female patient presenting back to the clinic today for her postoperative visit. Patient was initially referred to us by Dr. Maya Ricketts. She underwent a robotic assisted thymoma resection on 11/12/[address] Retana. Her pathology from surgery revealed: A. 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 Problem Noted Date Diagnosed Date Systemic lupus erythematosus 04/23/2023 Assessment & Plan (07/24/2024 6:04 PM HR LEADER): Main symptoms include pericardial and pleural effusion, diagnosed August 2022. Low complements, high titer positive ds DNA, leukopenia, high inflammation markers. Started on hydroxychloroquine in August 2022, currently on 400 mg daily. Decreasing prednisone by 0.5-1 mg every 2-4 weeks. Tolerating well with no recurrence of symptoms. Check labs for disease monitoring. Assessment & Plan (01/20/2024 3:00 PM CDT): Main symptoms include pericardial and pleural effusion, diagnosed August 2022. Low complements, high titer positive ds DNA, leukopenia, high inflammation markers. Started on hydroxychloroquine in August 2022, currently on 400 mg daily. Decreasing prednisone by 1 mg every 4 weeks. Tolerating well with no recurrence of symptoms. Check labs for disease monitoring. Assessment & Plan (07/29/2023 1:06 PM HR LEADER): Main symptoms include pericardial and pleural effusion, diagnosed August 2022. Low complements, high titer positive ds DNA, leukopenia, high inflammation markers. Started on hydroxychloroquine in August 2022, currently on 400 mg daily. Decreasing prednisone by 1 mg every 4 weeks. Tolerating well with no recurrence of symptoms. Check labs for disease monitoring. Assessment & Plan (04/23/2023 11:11 AM CDT): Main symptoms include pericardial and pleural effusion, diagnosed August 2022. Low complements, high titer positive ds DNA, leukopenia, high inflammation markers. Started on hydroxychloroquine in August 2022, currently on 300 mg daily. Since she has had some weight increase, we are going to increase her dose to 400 mg daily. Currently on prednisone 10 mg daily, once labs are reviewed, we will work to decrease by 1 mg every 2-4 weeks as patient tolerates. Continue colchicine 0.6 mg b.i.d. for now, we will eventually start to decrease that as well. 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 PCP has ordered bone density, not yet completed, scheduled October 2024. Mother has a history of osteoporotic fracture. Assessment & Plan (01/21/2024 8:36 AM CDT): Started on prednisone in August 2022, we will be working to taper prednisone. PCP has ordered bone density, not yet completed, scheduled February 2024. Mother has a history of osteoporotic fracture. Assessment & Plan (07/28/2023 3:24 PM HR LEADER): Started on prednisone in August 2022, we will be working to taper prednisone. PCP has ordered bone density, not yet completed. Mother has a history of osteoporotic fracture. Assessment & Plan (04/23/2023 11:10 AM CDT): Started on prednisone in August 2022, we will be working to taper prednisone. PCP has ordered bone density, not yet completed. Mother has a history of osteoporotic fracture. Thymoma, malignant 11/12/2022 Pleural effusion 10/20/2022 10/20/2022 Elevated antinuclear antibody (LAUREN) level 202210/20/2022 Systemic lupus erythematosus (SLE) with pericard itis 10/20/2022 10/20/2022 Vitamin D deficiency 10/20/2022 10/20/2022 Mediastinal mass 10/20/2022 Therapeutic drug monitoring 09/12/2022 Assessment & Plan (07/19/2024 6:58 PM HR LEADER): Patient did have her baseline eye exam in 2022 before starting on hydroxychloroquine. She is up to date on her eye exam, completed August 2023. Check labs to monitor for medication toxicity. Assessment & Plan (01/21/2024 8:35 AM CDT): Patient did have her baseline eye exam in 2022 before starting on hydroxychloroquine. She is up to date on her eye exam, completed August 2023. Check labs to monitor for medication toxicity. Assessment & Plan (07/29/2023 1:07 PM HR LEADER): Patient did have her baseline eye exam in 2022 before starting on hydroxychloroquine. She is due again for her eye exam in August 2023. Check labs to monitor for medication toxicity. Pericardial effusion 09/12/2022 Assessment & Plan (07/19/2024 6:58 PM HR LEADER): Status post pericardiocentesis in July 2022. Repeat echo with no reaccumulation. Occasionally has some shortness of breath. Doing well on current regimen. Work to taper prednisone. Tapering by 1 mg or so every month. Assessment & Plan (01/20/2024 2:59 PM CDT): Status post pericardiocentesis in July 2022. Repeat echo with no reaccumulation. Occasionally has some shortness of breath. Doing well on current regimen. Work to taper prednisone. Tapering by 1 mg or so every month. Assessment & Plan (07/29/2023 1:06 PM HR LEADER): Status post pericardiocentesis in July 2022. Repeat echo with no reaccumulation. Occasionally has some shortness of breath. Doing well on current regimen. Work to taper prednisone. Tapering by 1 mg or so every month. Assessment & Plan (04/23/2023 11:10 AM CDT): Status post pericardiocentesis in July 2022. Repeat echo with no reaccumulation. Occasionally has some shortness of breath. Doing well on current regimen. Work to taper prednisone. S/P pericardiocentesis 09/12/2022 HTN (hypertension) 05/26/2008 10/20/2022 Immunizations Immunization Administration Dates Next Due Influenza, Quadrivalent, Split, Intramuscular ,04/25/2020 Influenza, Quadrivalent, Spl it, Preservative Free, Intramuscular 04/22/2023 Influenza, Trivalent, IM (MDV) 04/22/2023 Influenza, Trivalent, Preservative Free, Intramu scular 04/24/2022 Surgical History Surgery Date Site/Laterality Comments TONSILLECTOMY AND ADENOIDECTOMY age 7 COLONOSCOPY age 51 PERICARDIOCENTESIS 08/07/22 Medical History Medical History Date Comments Hypertension Pericardial effusion diagnosed in [facility] ED; from CT 10/30/22; trace pericardial effusion, significantly decreased from prior exam Mediastinal mass Iron deficiency anemia Syncope 07/2022 at ED,occ urred once; had pericardial effusion and pleural effusion SLE (systemic lupus erythematosus) (HCC) recent diagnosis Pleural effusion diagnosed 3 in [facility] ED; from CT 10/30/22; sm. bilat. 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 Retana office visit note Thymoma Family History Medical History Relation Name Comments Skin cancer Father Stroke Maternal Grandfather Hypertension Mother Lymphoma Mother Bladder Cancer Sister Relation Name Status Comments Father Maternal Grandfather Mother Alive Sister Social History Tobacco Use Types Packs/Day Years Used Date Smoking Tobacco: Never Passive Smoke Exposure: Past Smokeless Tobacco: Never Tobacco Cessation:Counseling Given: Not Answered Social Connection and Isolat ion Panel [NHANES] Answer Date Recorded In a typical week, how many times do you talk on the phone with family, friends, or neighbors? More than three times a week 11/13/2022 How often do you get togethe r with friends or relatives? More than three times a week 11/13/2022 How often do you attend chur or tenriism services? More than 4 times per year 11/13/2022 Do you belong to any clubs o r organizations such as baptism groups, unions, fraternal or athletic groups, or school groups? No 11/13/2022 How often do you attend meet ings of the clubs or organizations you belong to? Never 11/13/2022 Are you , , di vorced, , never , or living with a partner? 11/13/2022 AUDIT-C Answer Date Recorded Q1: How often do you have a drink containing alcohol? Never 04/22/2023 Q2: How many drinks containi ng alcohol do you have on a typical day when you are drinking? Patient does not drink Q3: How often do you have si x or more drinks on one occasion? Never 04/22/2023 Overall Financial Resource Strain (CARDIA) Answe r Date Recorded How hard is it for you to pa y for the very basics like food, housing, medical care, and heating? Not very hard 11/13/2022 PHQ-2 Answer Date Recorded PHQ-2 Total Score (If total score is 3 or more points, staff should administer the PHQ-9) 0 11/12/2022 PRAPARE - Transportation Answer Date Re corded In the past 12 months, has l ack of transportation kept you from medical appointments or from getting medications? No 10/27 In the past 12 months, has l ack of transportation kept you from meetings, work, or from getting things needed for daily living? No 11/13/2022 Housing Stability Vital Sign Answer Case e Recorded In the last 12 months, was t here a time when you were not able to pay the mortgage or rent on time? No 11/13/2022 Number of Places Lived in the Last Year Not on f ile 11/13/2022 In the last 12 months, was t here a time when you did not have a steady place to sleep or slept in a skilled nursing (including now)? No 11/13/2022 Personal Safety Answer Date Recorded Have you ever been in or are you currently in a harmful physical or emotional relationship or is someone making you feel afraid or unsafe? Denies 11/12/2022 Comments No Sex and Gender Information Value Date Recorded Sex Assigned at Not on file Legal Sex Female 11:20 AM HR LEADER Gender Identity Not on file Sexual Orientation Not on file Obstetrics History Last Filed Vital Signs Vital Sign Reading Time Taken Comments Blood Pressure 140/72 07/20/2024 9:50 AM HR LEADER Pulse 76 07/20/2024 9:50 AM HR LEADER Temperature 36.4 C (97.5 F) 07/20/2024 9:50 AM HR LEADER Respiratory Rate 18 07/20/2024 9:50 AM HR LEADER Oxygen Saturation 98% 07/20/2024 9:50 AM HR LEADER Inhaled Oxygen Concentration - - Weight 98.9 kg (218 lb) 07/20/2024 9:50 AM HR LEADER Height 167.6 cm (5' 6) 07/20/2024 9:50 AM HR LEADER Body Mass Index 35.19 07/20/2024 9:50 AM HR LEADER Plan of Treatment Health Maintenance Due Date Last Done Comments Breast Cancer Screening-Mammogram 1961 Cervical Cancer Screening 1961 Colon Cancer Screening-Colonoscopy 1961 Hepatitis C Screening 1961 DTaP/Tdap/Td Vaccine (1 - Tdap) 1972 Hepatitis B Screening 1979 Regular Well Visit/Exam 18-64 1979 Pneumococcal vaccine <65 (1 of 2 - PCV) 1980 Zoster Vaccine (1 of 2) 1980 Depression Screening 10/23/2023 10/22/2022, 10/23/19 23 Covid-19 Vaccine (4 - 2023- 5 season) 2024 05/28/2021, 08/02/2020, 07/04/2020 Influenza Vaccine Completed 04/05/2024, , 04/22/2023, Additional history exists Insurance [facility] H[facility]/PPO Address: [facility] [address] [place] [address] [facility] Address: [address] [address] [place] [address] [facility]/PPO Address: [facility] [address] [place] [address] Advance Directives For more information, please contact: [phone] * Full Code (Latest Code Status on File) Date Activated Date Inactivated Comments 11/12/2022 6:25 PM 11/13/2022 10:43 PM Care Teams Auto Service Dispatcher Relationship Specialty Start Date End Date Maya Ricketts MD PCP - General Family Medicine 09/12/22 [place] [address] [facility] [address] [place] [address] Referring Physician Rheumatology 10/20/22 Fermín [place] [address] [facility] [address] [place] [address] Surgeon Thoracic Surgery 11/13/22
--- OUTSIDE RECORDS SUMMARY | 2024-11-23 07:41 | XMS_ITS | Clinical Summary ---
Author Organization [facility] [employer] Address [address] [place] [address] Care Team Providers Care Catering Director Name Role Phone Bakari Baires MD Unavailable Maya Ricketts MD Primary Care Provider [phone] Source Comments [facility] [employer],non-owned Affiliates and Associated Physician Practices is amultiple site organization consisting of ambulatory clinics and hospital sitesin [place], [place], [place] and [place]. This disclosure is being madepursuant to the Care Everywhere program and may not contain all information available regarding this patient. Last updated 18.[facility] [employer] Allergies No known active allergies Medications * Be aware that medications may not be up to date on this document. Alwaysverify current medications with the patient. metoprolol succinate XL 24hr (TOPROL XL) 100 MG tablet Take 100 mg by mouth daily. Active Active Problems Problem Noted Date Diagnosed Date Encounter for health-related screening 9 Overview (09/26/2017): Last PAP 05/11/09 Last MAMM 09/2005: benign L cyst IMO update 09 27 2017 HTN (hypertension) 05/26/2008 Family History Medical History Relation Name Comments Cancer Father melanoma Stroke Maternal Grandfather Relation Name Status Comments Father Maternal Grandfather Social History Tobacco Use Types Packs/Day Years Used Date Smoking Tobacco: Never Alcohol Use Standard Drinks/Week Comments Yes 0 (1 standard drink = 0.6 oz pur e alcohol) socially Comments No Sex and Gender Information Value Date Recorded Sex Assigned at Not on file Legal Sex Female 6:12 AM PROGRAMMABLE LOGIC CONTROLLER ASSEMBLER Gender Identity Not on file Sexual Orientation Not on file Last Filed Vital Signs Vital Sign Reading Time Taken Comments Blood Pressure 144/82 05/11/2009 11:37 AM PROGRAMMABLE LOGIC CONTROLLER ASSEMBLER Pulse - - Temperature - - Respiratory Rate - - Oxygen Saturation - - Inhaled Oxygen Concentration - - Weight 91.6 kg (202 lb) 05/11/2009 11:37 AM PROGRAMMABLE LOGIC CONTROLLER ASSEMBLER Height 170.8 cm (5' 7.25) 05/11/2009 11:[address] Body Mass Index 31.4 05/11/2009 11:37 AM PROGRAMMABLE LOGIC CONTROLLER ASSEMBLER Plan of Treatment Health Maintenance Due Date Last Done Comments COLOGUARD (AGES 45-75) - COL ON CA SCREENING 1961 COLON MONITORING 1961 COLONOSCOPY - COLON CA SCREENING 1961 CT COLONOGRAPHY - COLON CA SCREENING 1961 Colorectal Cancer Screening 1961 FIT - COLON CA SCREENING 1961 FLEX SIG - COLON CA SCREENING 1961 LIPID TESTING 1961 HIV SCREENING 1976 HEPATITIS C SCREENING 04/04/1979 DTAP/TDAP/TD VACCINES (1 - Tdap) 1980 PNEUMOCOCCAL VACCINE 50+ (1 of 1 - PCV) 2011 ZOSTER VACCINE (1 of 2) 2011 MAMMOGRAM 05/16/2011 05/16/2009, 10/11/2005 COVID-19 VACCINE ( - 2023-2 5 season) 2024 DEPRESSION SCREENING 06/29/2024 INFLUENZA VACCINE (Season Ended) 2025 Respiratory Syncytial Virus (RSV) Vaccine Pt: or over 60 yrs (1 - 1-dose 75+ series) 2036 HEPATITIS B VACCINE Aged Out No longe r eligible based on patient's age to complete this topic HIB VACCINE Aged Out No longer eligi ble based on patient's age to complete this topic HPV VACCINE Aged Out No longer eligi ble based on patient's age to complete this topic MENINGOCOCCAL (Group B) VACCINE SHARED DECISION-MAKING Aged Out No longer eligible based on patient's age to complete this topic MENINGOCOCCAL GROUPS A/C/Y/W VACCINE Aged Out No longer eligible b ased on patient's age to complete this topic Procedures Procedure Name Priority Date/Time Associated Diagnosis Comments MAMMO BILAT SCREENING Routine 05/16/2009 Breast Cancer Screening from Last 3 Months or Most Recently Relevant to Health Maintenance Results * MAMMO SCREENING DIGITAL IMAGE BILAT (05/16/2009) Anatomical Region Laterality Modality Breast Bilateral Other Bakari Baires MD MAMMO ORDERABLES Final Result from Last 3 Months or Most Recently Relevant to Health Maintenance Care Teams Catering Director Relationship Specialty Start Date End Date Bakari Baires MD [address] [place] [address] PCP - OBGYN 05/26/08 Maya Ricketts MD [address] [place] [address] PCP - General 08/28/22
--- OUTSIDE RECORDS SUMMARY | 2024-11-23 07:41 | XMS_ITS | Referral Summary ---
Author Organization [facility] [address] Address [address] [place] [address] Care Team Providers Care Spray Mixer Name Role Phone Maya Ricketts MD Primary Care Provider [phone] Maxwell Chang MD, Cheng Newman. 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 Assessment & Plan (07/29/2023 1:06 PM MINE CAPTAIN): Main symptoms include pericardial and pleural effusion, [...] eventually start to decrease that as well. FCI systemic steroid user 04/23/2023 Assessment & Plan (07/24/2024 6:05 PM MINE CAPTAIN): Started on prednisone in August 2022, we [...] fracture. Assessment & Plan (07/28/2023 3:24 PM MINE CAPTAIN): Started on prednisone in August 2022, we [...] 09/12/2022 Assessment & Plan (07/19/2024 6:58 PM MINE CAPTAIN): Patient did have her baseline eye exam [...] toxicity. Assessment & Plan (07/29/2023 1:07 PM MINE CAPTAIN): Patient did have her baseline eye exam in 2022 before starting on hydroxychloroquine. She is due again for her eye exam in August 2023. Check labs to monitor for medication toxicity. Pericardial effusion 09/12/2022 Assessment & Plan (07/19/2024 6:58 PM MINE CAPTAIN): Status post pericardiocentesis in July 2022. Repeat [...] month. Assessment & Plan (07/29/2023 1:06 PM MINE CAPTAIN): Status post pericardiocentesis in July 2022. Repeat [...] Influenza, Trivalent, Preservative Free, Intramu scular 04/24/2022 Social History Tobacco Use Types Packs/Day Years [...] week 11/13/2022 How often do you attend [facility] or [facility] services? More than 4 times per year 11/13/2022 Do you belong to any clubs o r organizations such as yazidi groups, unions, fraternal or athletic groups, or [...] place to sleep or slept in a long-term (including now)? No 11/13/2022 Personal Safety Answer Date Recorded Have you ever been in or are you currently in a harmful physical or emotional relationship or is someone making you feel afraid or unsafe? Denies 11/12/2022 Comments No Sex and Gender Information Value Date Recorded Sex Assigned at Not on file Legal Sex Female 11:20 AM MINE CAPTAIN Gender Identity Not on file Sexual Orientation Not on file Last Filed Vital Signs Vital Sign Reading Time Taken Comments Blood Pressure 140/72 07/20/2024 9:50 AM MINE CAPTAIN Pulse 76 07/20/2024 9:50 AM MINE CAPTAIN Temperature 36.4 C (97.5 F) 07/20/2024 9:50 AM MINE CAPTAIN Respiratory Rate 18 07/20/2024 9:50 AM MINE CAPTAIN Oxygen Saturation 98% 07/20/2024 9:50 AM MINE CAPTAIN Inhaled Oxygen Concentration - - Weight 98.9 kg (218 lb) 07/20/2024 9:50 AM MINE CAPTAIN Height 167.6 cm (5' 6) 07/20/2024 9:50 AM MINE CAPTAIN Body Mass Index 35.19 07/20/2024 9:50 AM MINE CAPTAIN Plan of Treatment Not on file Insurance [facility] PL[facility] Advance Directives For more information, please contact: [phone] * Full Code (Latest Code Status on File) Date Activated Date Inactivated Comments 11/12/2022 6:25 PM 11/13/2022 10:43 PM Care Teams Spray Mixer Relationship Specialty Start Date End Date Maya Ricketts MD PCP - General Family Medicine 09/12/22 [place] [id number] [address] Referring Physician Rheumatology 10/20/22 [place] [id number] [address] Surgeon Thoracic Surgery 11/13/22
--- OUTSIDE RECORDS SUMMARY | 2024-11-23 07:41 | XMS_ITS | Patient Health Record ---
Author Organization [facility] Address [address] [place], [place] [id number] Care Team Providers Care Automotive Technician Instructor Name Role Phone TISHA POON MD Primary Care Provider Chneg Garcia [phone] ALLERGIES No Known Allergies REASON FOR REFERRAL No Information MEDICATIONS Medication SIG (Take, Route, Frequency, Duration) Notes Start Date End Date Status predniSONE 10 mg 2 tab(s) orally once a day for 30 day(s) Active Hydroxychloroquine Sulfate 2 00 mg 1.5 tabs orally daily for 90 days Active ibuprofen 400 mg 1 tab(s) orally ever y 6 hours Active metoprolol 100 mg 1 tab(s) orally once a day for 30 day(s) Active ergocalciferol 50,000 intl units 1 cap(s) orally once a week for 30 day(s) 09/10/2022 Active SOCIAL HISTORY Sex Assigned At : Social History Observation Description Sex Assigned At Unknown PROBLEMS Problem Type ICD Code Onset Dates Problem Status W/U Status Risk SNOMED Code Notes Problem Pleural effusion (J90) Active confirmed 29618424 Problem Pericardial effusion (I31.9) Active confirmed Pericardial effusion (544786401) Problem Positive double stranded DNA antibody test (R76.8) Active confirmed 369891654 Problem LAUREN positive (R76.8) Active confirmed 110757069 Problem Vitamin D deficiency (E55.9) Active confirmed 13285299 Problem 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) Active confirmed [id number] PLAN OF TREATMENT No Information Insurance Providers Payer Name Payer Address Payer Phone Subscriber Number Group Number Insured Name Patient Relationship to Insured Coverage Start Date Coverage End Date [facility] [address] [address] [place] [address] [id number] Lakeisha Ruiz Self - patient is the insured 3 MEDICAL (GENERAL) HISTORY Medical History History ICD Code anemia chest pain irregular heart beat poor circulation swelling of ankles/feet difficulty breathing poor appetite weight loss high blood pressure rapid heartbeat constipation hemorrhoids Surgical History Surgery Date(Month/Year) tonsillectomy
--- OUTSIDE RECORDS SUMMARY | 2024-11-23 07:41 | XMS_ITS | Clinical Summary ---
Author Organization [facility] Address [address] [place] [address] [place] [address] Care Team Providers Care Tumbling And Rolling Supervisor Name Role Phone Unavailable Primary Care Provider Unavailabl e Social History Tobacco Use Types Packs/Day Years Used Date Smoking Tobacco: Never Assessed Comments Unknown Sex and Gender Information Value Date Recorded Sex Assigned at Not on file Legal Sex Female 9:01 AM CDT Gender Identity Not on file Sexual Orientation Not on file Plan of Treatment Health Maintenance Due Date Last Done Comments DTAP/TDAP/TD VACCINES (1 - Tdap) 1980 HPV/Cotest (21-29) 1982 CERVICAL CANCER SCREENING 1991 HPV/Cotest (30-65) 1991 PAP SMEAR 1991 BREAST CANCER SCREENING 2001 COLORECTAL SCREENING 2006 Colorectal Cancer Screening 2006 FIT-DNA Q 3 years 2006 FIT/FOBT Q 1 year 2006 Flex Sig/CT Colonography Q 5 years 2006 ZOSTER VACCINE (1 of 2) 2011 INFLUENZA VACCINE (#1) 2024 RSV VACCINE (60+ or ) (1 - 1-dose 75+ series) 2036
== END 2024-11-23 07:39 | disposition home or self-care (01) ==
LOC: ANHIMG 07:39
PROVIDERS: PCP Family Medicine; Visit Provider Student in an Organized Health Care Education/Training Program
DX: M85.89 Other specified disorders of bone density and structure, multiple sites (principal); Z78.0 Asymptomatic menopausal state; Z13.820 Encounter for screening for osteoporosis
CPT/HCPCS: 77080

== ENCOUNTER 2025-04-08 11:26 | Outpatient (CLI) | payer OTHER, SELFPAY ==
--- OUTSIDE RECORDS SUMMARY | 2025-04-08 11:29 | XMS_ITS | Clinical Summary ---
Author Organization [facility] [address] Address [address] [place] [address] Care Team Providers Care Furnace Cleaner Name Role Phone Maya Ricketts MD Primary Care Provider [phone] Maxwell Chang MD, Cheng Newman. Unavailable + Fermín Retana MD Unavailable [phone] Allergies No known active allergies Medications metoprolol XL (TOPROL-XL) 100 mg 24 hr tablet Take 1 tablet (100 mg total) by mouth nightly 3 Active ergocalciferol, vitamin D2, 50 mcg (2,000 unit) tablet Take 2,000 Units by mouth daily 3 Active hydroxychloroquin e (PLAQUENIL) 200 mg tabletIndications :Other systemic lupus erythematosus with other organ involvement,Peric ardial effusion,[facility] systemic steroid user,Therapeutic drug monitoring,Dysuri a Take [...] :Other systemic lupus erythematosus with other organ involvement,Peric ardial effusion,[facility] systemic steroid user,Therapeutic drug monitoring,Dysuri a Take 1 tablet (5 mg) by mouth daily In conjunction with 1 mg tabs for total of 9 mg daily. 90 tablet 3 5 Active alendronate (FOSAMAX) 70 mg tablet Take 1 tablet (70 mg total) by mouth every 7 days 5 Active colchicine (COLCRYS) 0.6 mg tablet Take 1 tablet (0.6 mg total) by mouth daily as needed for muscle/joint pain 90 tablet 1 5 Active Active Problems Patient Care Coordination [...] CT of the chest on 08/07/2022 at [facility] with the following findings: Large pericardial effusion [...] Systemic lupus erythematosus 04/23/2023 Assessment & Plan (12/21/2024 7:27 AM CDT): Main symptoms include pericardial and pleural effusion, diagnosed August 2022. Low complements, high titer positive ds DNA, leukopenia, high inflammation markers. Started on hydroxychloroquine in August 2022, currently on 400 mg daily. Decreasing prednisone by 0.5-1 mg every 2-4 weeks. Tolerating well with no recurrence of symptoms. Check labs for disease monitoring. Assessment & Plan (07/24/2024 6:04 PM CALENDERER): Main symptoms include pericardial and pleural effusion, [...] monitoring. Assessment & Plan (07/29/2023 1:06 PM CALENDERER): Main symptoms include pericardial and pleural effusion, [...] eventually start to decrease that as well. 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 PCP has ordered Bone Density. Assessment & Plan (07/24/2024 6:05 PM CALENDERER): Started on prednisone in August 2022, we [...] fracture. Assessment & Plan (07/28/2023 3:24 PM CALENDERER): Started on prednisone in August 2022, we [...] Therapeutic drug monitoring 09/12/2022 Assessment & Plan (12/21/2024 7:27 AM CDT): Patient did have her baseline eye exam in 2022 before starting on hydroxychloroquine. She is up to date on her eye exam, completed August 2023. Check labs to monitor for medication toxicity. Assessment & Plan (07/19/2024 6:58 PM CALENDERER): Patient did have her baseline eye exam [...] toxicity. Assessment & Plan (07/29/2023 1:07 PM CALENDERER): Patient did have her baseline eye exam in 2022 before starting on hydroxychloroquine. She is due again for her eye exam in August 2023. Check labs to monitor for medication toxicity. Pericardial effusion 09/12/2022 Assessment & Plan (12/21/2024 7:27 AM CDT): Status post pericardiocentesis in July 2022. Repeat echo with no reaccumulation. Occasionally has some shortness of breath. Doing well on current regimen. Work to taper prednisone. Tapering by 1 mg or so every month. Assessment & Plan (07/19/2024 6:58 PM CALENDERER): Status post pericardiocentesis in July 2022. Repeat [...] month. Assessment & Plan (07/29/2023 1:06 PM CALENDERER): Status post pericardiocentesis in July 2022. Repeat [...] S/P pericardiocentesis 09/12/2022 HTN (hypertension) 05/26/2008 10/20/2022 Encounters Date Type Department Care Team Description 01/16/2025 Orders Only [facility] [address] [place] [phone] Aaliyah Hopper, REGISTERED NURSE OBSTETRICS History of thymoma (Primary Dx) 01/09/2025 2:15 PM CDT Office Visit [facility] [address] [place] [phone] Aaliyah Hopper, REGISTERED NURSE OBSTETRICS H/O thymoma (Primary Dx) 01/06/2025 12:30 PM CDT - 01/06/2025 11:59 PM CDT Hospital Encounter [facility] [address] [facility] [place] [address] Mediastinal mass Discharge Disposition: Discharge to home or self care from Last 3 Months Immunizations Immunization Administration Dates Next Due Influenza, Quadrivalent, Split, Intramuscular ,04/25/2020 Influenza, Quadrivalent, Spl it, Preservative Free, Intramuscular 04/22/2023 Influenza, Trivalent, IM (MDV) 04/22/2023 Influenza, Trivalent, Preservative Free, Intramu scular 04/05/2024,04/24/2022 Surgical History Surgery Date Site/Laterality Comments TONSILLECTOMY AND ADENOIDECTOMY age 7 COLONOSCOPY age 51 PERICARDIOCENTESIS 08/07/22 Medical History Medical History Date Comments Hypertension Pericardial effusion diagnosed in [facility] ED; from CT 10/30/22; trace pericardial effusion, significantly decreased from prior exam Mediastinal mass Iron deficiency anemia Syncope 07/2022 at ED,occ urred once; had pericardial effusion and pleural effusion SLE (systemic lupus erythematosus) (HCC) recent diagnosis Pleural effusion diagnosed 3 in [facility] ED; from CT 10/30/22; sm. bilat. pleural effusion, decreased in size from prior exam Seasonal allergies Motion sickness on rides Wears glasses Rash left anterior ch est, near axilla, reported to surg.'s REGISTERED NURSE OBSTETRICS on 11/04/22 Malignant neoplasm of thymus (HCC) per Dr. Retana office visit note Thymoma Osteoporosis Family History Medical History Relation Name Comments Skin cancer Father Stroke Maternal Grandfather Hypertension Mother Lymphoma Mother Bladder Cancer Sister Relation Name Status Comments Father Maternal Grandfather Mother Sister Social History Tobacco Use Types Packs/Day Years Used Date Smoking Tobacco: Never Passive Smoke Exposure: Past Smokeless Tobacco: Never Tobacco Cessation:Counseling Given: Not Answered Social Connection and Isolation Panel Answer Date Recorded In a typical week, how many times do you talk on the phone with family, friends, or neighbors? More than three times a week 11/13/2022 How often do you get togethe r with friends or relatives? More than three times a week 11/13/2022 How often do you attend [facility] or [facility] services? More than 4 times per year 11/13/2022 Do you belong to any clubs o r organizations such as denominational groups, unions, fraternal or athletic groups, or [...] place to sleep or slept in a jail (including now)? No 11/13/2022 Personal Safety Answer Date Recorded Have you ever been in or are you currently in a harmful physical or emotional relationship or is someone making you feel afraid or unsafe? Denies 11/12/2022 Comments No Sex and Gender Information Value Date Recorded Sex Assigned at Not on file Legal Sex Female 11:20 AM CALENDERER Gender Identity Not on file Sexual Orientation Not on file Obstetrics History Last Filed Vital Signs Vital Sign Reading Time Taken Comments Blood Pressure 141/82 01/09/2025 2:13 PM CDT Pulse 70 01/09/2025 2:13 PM CDT Temperature 36.8 C (98.2 F) 01/09/2025 2:13 PM CDT Respiratory Rate 20 01/09/2025 2:13 PM CDT Oxygen Saturation 98% 01/09/2025 2:13 PM CDT Inhaled Oxygen Concentration - - Weight 97 kg (213 lb 13.5 oz) 01/09/2025 2:13 PM CDT Height 166 cm (5' 5.35) 01/09/2025 2:13 PM CDT Body Mass Index 35.2 01/09/2025 2:13 PM CDT Plan of Treatment Health Maintenance Due Date [...] 10/22/2022, 10/23/19 23 Covid-19 Vaccine (4 - 2024-2 6 season) 2025 05/28/2021, 08/02/2020, 07/04/2020 Influenza Vaccine (#1) 2025 , 04/22/2023, 04/22/2023, Additional history exists Procedures Procedure Name Priority Date/Time Associated Diagnosis Comments CT CHEST WO CONTRAST Schedule Routine, Read Routine (OP Routine) 01/06/2025 12:40 PM CDT Mediastinal mass from Last 3 Months Results * CT Chest WO Contrast (01/06/2025 12:40 PM CDT) Anatomical Region Laterality Modality Body N/A Computed Tomogra phy 01/09/2025 9:54 AM CDT Narrative 01/09/2025 9:58 AM CDT EXAM DESCRIPTION: CT CHEST WO CONTRAST REASON FOR STUDY: Mediastinal mass 6 month f/u mediastinal mass. Hx of thymus removed. No complaints. TECHNIQUE: CT scan of the chest performed without intravenous contrast using helical scanning technique. Reconstructed coronal and sagittal MPR images reviewed. All images stored on PACS. Automated exposure control was used as a dose optimization technique for this examination. COMPARISON: CT chest 07/05/2024 FINDINGS: The sensitivity for detection of solid visceral lesions is diminished without the use of intravenous contrast. LUNGS: No nodules or masses. No pneumonia. PLEURA: No effusion. No pneumothorax. MEDIASTINUM/YANET: No identified masses or abnormal nodes. HEART: Heart size is normal with small pericardial effusion. CORONARY ARTERY CALCIFICATION: None VASCULATURE: Ectatic ascending thoracic aorta measuring 3.7 cm, stable. AXILLA: No adenopathy. CHEST WALL: No masses. No subcutaneous air. HARDWARE/LINES/TUBES: None. UPPER ABDOMEN: Stable left hepatic cyst. MUSCULOSKELETAL: No significant abnormality. OTHER: No other significant abnormality. IMPRESSION: No acute pulmonary process. No mediastinal mass THIS IS AN ELECTRONICALLY VERIFIED FINAL REPORT 01/09/2025 9:58 AM - Electronically signed by Eli Correa M.D. FT: FT Report ID: [id number] Reading Location: [id number] Procedure Note Eli Falk MD - 01/09/2025 EXAM DESCRIPTION: CT CHEST WO CONTRAST REASON FOR STUDY: Mediastinal mass 6 month f/u mediastinal mass. Hx of thymus removed. No complaints. TECHNIQUE: CT scan of the chest performed without intravenous contrastusing helical scanning technique. Reconstructed coronal and sagittal MPR images reviewed. All images stored on PACS. Automated exposure control was usedas a dose optimization technique for this examination. COMPARISON: CT chest 07/05/2024 FINDINGS: The sensitivity for detection of solid visceral lesions is diminished without the use of intravenous contrast. LUNGS: No nodules or masses. No pneumonia. PLEURA: No effusion. No pneumothorax. MEDIASTINUM/YANET: No identified masses or abnormal nodes. HEART: Heart size is normal with small pericardial effusion. CORONARY ARTERY CALCIFICATION: None VASCULATURE: Ectatic ascending thoracic aorta measuring 3.7 cm, stable. AXILLA: No adenopathy. CHEST WALL: No masses. No subcutaneous air. HARDWARE/LINES/TUBES: None. UPPER ABDOMEN: Stable left hepatic cyst. MUSCULOSKELETAL: No significant abnormality. OTHER: No other significant abnormality. IMPRESSION: No acute pulmonary process. No mediastinal mass THIS IS AN ELECTRONICALLY VERIFIED FINAL REPORT 01/09/2025 9:58 AM - Electronically signed by Eli Correa M.D. FT: FT Report ID: [id number] Reading Location: [id number] Aaliyah Hopper NP IMG CT PROCEDURES Final Re sult from Last 3 Months Insurance [facility] Advance Directives For more information, please contact: [phone] * Full Code (Latest Code Status on File) Date Activated Date Inactivated Comments 11/12/2022 6:25 PM 11/13/2022 10:43 PM Care Teams Furnace Cleaner Relationship Specialty Start Date End Date Maya Ricketts MD PCP - General Family Medicine 09/12/22 [place] [id number] [address] Referring Physician Rheumatology 10/20/22 Fermín [place] [id number] [address] Surgeon Thoracic Surgery 11/13/22
--- OUTSIDE RECORDS SUMMARY | 2025-04-08 11:29 | XMS_ITS | Clinical Summary ---
Author Organization [facility] Address [address] [place] [address] [place] [address] Care Team Providers Care Actor Understudy Name Role Phone Unavailable Primary Care Provider [...] (1 of 2) 2011 INFLUENZA VACCINE (#1) 2025 RSV VACCINE (60+ or ) (1 - 1-dose 75+ series) 2036
[2025-04-08 11:42] LABS: Hematocrit 34.5 % (37.0-47.0); Hemoglobin 11.2 g/dL (12.0-15.0); Immature Granulocyte Percent A 0.5 % (0-0.5); Lymphocytes Absolute Auto 1.07 K/mm3 (0.9-3.2); Mean Corpuscular HGB Conc 32.5 g/dl (32-36); Mean Corpuscular Hemoglobin 29.5 pg (26-34); Mean Corpuscular Volume 90.8 fl (80-100); Nucleated Red Blood Cells Absolute Auto 0.000 K/mm3 (0.0-0.012); Nucleated Red Blood Cells Perc 0.0 % (0.0-0.2); Platelet Count Result 238 k/mm3 (150-375); Red Blood Count 3.80 M/mm3 (4.2-5.4); White Blood Count 9.6 K/mm3 (4.5-10.0)
[2025-04-08 11:53] LABS: Hemoglobin A1C 5.6 % (<5.7)
[2025-04-08 12:02] LABS: Iron 74 ug/dL (37-170)
[2025-04-08 12:12] LABS: Percent Iron Saturation 30 % (20-50)
[2025-04-08 12:22] LABS: Alanine Aminotransferase 14 U/L (6-35); Albumin Level 3.8 g/dL (3.5-5.1); Alkaline Phosphatase 64 U/L (38-126); Anion Gap 7 mmol/L (4-12); Aspartate Amino Transferase 22 U/L (14-36); Bilirubin,Total 0.7 mg/dL (0.2-1.3); Blood Urea Nitrogen 16 mg/dL (7-17); Calcium 8.5 mg/dL (8.4-10.2); Carbon Dioxide 28 mmol/L (22-30); Chloride 102 mmol/L (98-107); Cholesterol 161 mg/dL (0-200); Estimated Glomerular Filt Rate > 60; Glucose 100 mg/dL (65-110); HDL Direct 55 mg/dL; Potassium 3.9 mmol/L (3.4-5.0); Sodium 137 mmol/L (137-145); Total Protein 6.9 g/dL (6.3-8.2); Triglycerides 74 mg/dL (<150)
[2025-04-08 12:39] LABS: Ferritin 174.00 ng/mL (11.1-264)
== END 2025-04-08 11:27 | disposition home or self-care (01) ==
LOC: ANHLAB 11:27
PROVIDERS: PCP Family Medicine; Visit Provider Family Medicine
DX: Z13.1 Encounter for screening for diabetes mellitus (principal); I10 Essential (primary) hypertension; E78.2 Mixed hyperlipidemia; D64.9 Anemia, unspecified
CPT/HCPCS: 36415; 80053; 80061; 82728; 83036; 83540; 83550; 85025